=== PATIENT | female | born 1995 | race Caucasian/White ===

== ENCOUNTER → 2016-09-22 | Outpatient (REF) | payer OTHER ==
[~2016-09-22] MED LIST: NUVAMIS2 IU
[2016-09-22 19:53] LABS: MEAN CORPUSCULAR HEMOGLOBIN 30.3 pg (27.0-33.0); MEAN CORPUSCULAR HGB CONC 33.8 g/dl (32.0-36.5); MEAN CORPUSCULAR VOLUME 89.6 fl (80.0-96.0); RED CELL DISTRIBUTION WIDTH 11.9 % (11.5-14.5); WHITE BLOOD COUNT 10.4 K/mm3 (4.0-10.0)
[2016-09-22 20:12] LABS: ALBUMIN 4.4 GM/DL (3.2-5.2); ALBUMIN/GLOBULIN RATIO 1.22 (1.00-1.93); ALKALINE PHOSPHATASE 68 U/L (45-117); ALT/SGPT 23 U/L (12-78); ANION GAP 8 MEQ/L (8-16); AST/SGOT 12 U/L (15-37); BILIRUBIN,TOTAL 0.7 MG/DL (0.2-1.0); BLOOD UREA NITROGEN 13 MG/DL (7-18); CALCIUM LEVEL 9.4 MG/DL (8.5-10.1); CARBON DIOXIDE LEVEL 26 MEQ/L (21-32); CHLORIDE LEVEL 105 MEQ/L (98-107); CREATININE FOR GFR 0.71 MG/DL (0.55-1.02); FREE T4 1.04 NG/DL (0.76-1.46); GLOMERULAR FILTRATION RATE > 60.0 (>60); GLUCOSE, FASTING 80 MG/DL (70-105); POTASSIUM SERUM 3.8 MEQ/L (3.5-5.1); SODIUM LEVEL 139 MEQ/L (136-145)
[2016-09-27 14:11] LABS: Chitobioside Carbohydrat (ACCA 42 units (0-90); Laminaribioside Carbohyd (ALCA 6 units (0-60); Mannobioside Carbohydrat (AMCA 24 units (0-100); Saccharomyces cerevisiae IgG A 1 units (0-50)
== END ==
LOC: M SFHCADAM 12:38
PROVIDERS: ATTEND Family Medicine
DX: K52.9 Noninfective gastroenteritis and colitis, unspecified (principal); E04.9 Nontoxic goiter, unspecified

== ENCOUNTER 2016-11-25 12:49 | Outpatient (CLI) | payer OTHER ==
[~2016-11-25] VITALS: Ht 167.6 cm; Wt 63.5 kg
[2016-11-25] MEDS ORDERED: NS 1,000 ML IV ONE (13:00)
[2016-11-25] MEDS ORDERED: NUVAMIS2 IU (14:25)
[2016-11-25] MEDS ORDERED: LIDOCAINE 2% MDV 20 ML VIAL As Ordered ONE (14:55)
[2016-11-25] MEDS ORDERED: PROPOFOL 200 MG/20 ML VIAL As Ordered ONE (14:55)
--- NOTE | 2016-11-25 15:39 | ROOR ---
Patient Name: Esau Goddard Procedure Date: 11/25/2016 3:08 PM Date of : 1995 Age: 21 Room: [facility] Gender: Female Note Status: Finalized Procedure: Colonoscopy Indications: Chronic diarrhea, Hematochezia Providers: Edgar Salcido MD Referring MD: Huber Jauregui MD Requesting Provider: Medicines: Monitored Anesthesia Care Complications: No immediate complications. Procedure: Pre-Anesthesia Assessment: - Prior to the procedure, a History and Physical was performed, and patient medications and allergies were reviewed. The patient is competent. The risks and benefits of the procedure and the sedation options and risks were discussed with the patient. All questions were answered and informed consent was obtained. Patient identification and proposed procedure were verified by the physician, the nurse and the cotton buyer in the procedure room. Mental Status Examination: alert and oriented. Airway Examination: normal oropharyngeal airway and neck mobility. Respiratory Examination: clear to auscultation. CV Examination: normal. Prophylactic Antibiotics: The patient does not require prophylactic antibiotics. Prior Anticoagulants: The patient has taken no previous anticoagulant or antiplatelet agents. ASA Grade Assessment: I - A normal, healthy patient. After reviewing the risks and benefits, the patient was deemed in satisfactory condition to undergo the procedure. The anesthesia plan was to use monitored anesthesia care (MAC). Immediately prior to administration of medications, the patient was re-assessed for adequacy to receive sedatives. The heart rate, respiratory rate, oxygen saturations, blood pressure, adequacy of pulmonary ventilation, and response to care were monitored throughout the procedure. The physical status of the patient was re-assessed after the procedure. The Colonoscope was introduced through the anus and advanced to the terminal ileum, with identification of the appendiceal orifice and IC valve. The colonoscopy was performed without difficulty. The patient tolerated the procedure well. The quality of the bowel preparation was good. The terminal ileum, ileocecal valve, appendiceal orifice, and rectum were photographed. Scope insertion time was 2 minutes. Scope withdrawal time was 8 minutes. The total duration of the procedure was 11 minutes. Findings: The perianal and digital rectal examinations were normal. The terminal ileum appeared normal. Biopsies were taken with a cold forceps for histology. Verification of patient identification for the specimen was done by the physician and nurse using the patient's name, date and medical record number. Estimated blood loss was minimal. Normal mucosa was found from sigmoid to cecum. A patchy area of mildly erythematous mucosa was found in the rectum. Biopsies for histology were taken with a cold forceps from the ascending colon, transverse colon and rectum for evaluation of microscopic colitis. No additional abnormalities were found on retroflexion. Impression: - The examined portion of the ileum was normal. Biopsied. - Normal mucosa from sigmoid to cecum. - Erythematous mucosa in the rectum. Biopsied. Recommendation: - Patient has a contact number available for emergencies. The signs and symptoms of potential delayed complications were discussed with the patient. Return to normal activities tomorrow. Written discharge instructions were provided to the patient. - Resume previous diet. - Continue present medications. - Await pathology results. - Repeat colonoscopy date to be determined after pending pathology results are reviewed for surveillance. - Return to GI clinic as previously scheduled 12/12/2016 at 10:30 AM. - Return to primary care physician. Edgar Salcido MD Edgar Salcido MD 11/25/2016 3:39:43 PM This report has been signed electronically. Number of Addenda: 0 Note Initiated On: 11/25/2016 3:08 PM Estimated Blood Loss: Estimated blood loss was minimal.
[2016-11-25 16:09] VITALS: BP 111/58
== END 2016-11-25 16:26 | disposition home or self-care (01) ==
LOC: M OPP 12:49
PROVIDERS: ATTEND Internal Medicine Gastroenterology
DX: K92.1 Melena (principal); Z88.1 Allergy status to other antibiotic agents; Z79.3 Long term (current) use of hormonal contraceptives; Z80.0 Family history of malignant neoplasm of digestive organs

== ENCOUNTER → 2017-11-20 | Outpatient (REF) | payer BC, OTHER | LOC: M LAB REF 14:05 | DX: Z12.4 Encounter for screening for malignant neoplasm of cervix (principal) | CPT/HCPCS: 88142; G0123 ==

== ENCOUNTER → 2018-03-01 | Outpatient (REF) | payer BC ==
[2018-03-01 13:15] LABS: HEMATOCRIT 40.4 % (36.0-47.0); HEMOGLOBIN 13.3 g/dl (12.0-15.5); MEAN CORPUSCULAR HEMOGLOBIN 29.7 pg (27.0-33.0); MEAN CORPUSCULAR HGB CONC 32.9 g/dl (32.0-36.5); MEAN CORPUSCULAR VOLUME 90.2 fl (80.0-96.0); PLATELET COUNT, AUTOMATED 116 10^3/uL (150-450); RED BLOOD COUNT 4.48 10^6/uL (4.00-5.40); RED CELL DISTRIBUTION WIDTH 11.5 % (11.5-14.5); WHITE BLOOD COUNT 7.9 10^3/uL (4.0-10.0)
[2018-03-01 13:21] LABS: ALBUMIN 3.9 GM/DL (3.2-5.2); ALBUMIN/GLOBULIN RATIO 1.26 (1.00-1.93); ALKALINE PHOSPHATASE 49 U/L (45-117); ALT/SGPT 17 U/L (12-78); ANION GAP 7 MEQ/L (8-16); AST/SGOT 9 U/L (7-37); BILIRUBIN,TOTAL 0.7 MG/DL (0.2-1.0); BLOOD UREA NITROGEN 13 MG/DL (7-18); CALCIUM LEVEL 8.8 MG/DL (8.5-10.1); CARBON DIOXIDE LEVEL 26 MEQ/L (21-32); CHLORIDE LEVEL 107 MEQ/L (98-107); CREATININE FOR GFR 0.72 MG/DL (0.55-1.30); FREE T4 0.96 NG/DL (0.76-1.46); GLOMERULAR FILTRATION RATE > 60.0 (>60); GLUCOSE, FASTING 77 MG/DL (70-100); POTASSIUM SERUM 4.4 MEQ/L (3.5-5.1); SODIUM LEVEL 140 MEQ/L (136-145); THYROID STIMULATING HORMONE 0.989 uIU/ML (0.358-3.740)
[2018-03-03 00:11] LABS: DEAMIDATED GLIADIN ABS, IgA 2 units (0-19); DEAMIDATED GLIADIN ABS, IgG 3 units (0-19); ENDOMYSIAL ANTIBODY IgA Negative (Negative); IMMUNOGLOBULIN A 189 mg/dL (87-352); t-TRANSGLUTAMINASE(tTG) IgA <2 U/mL (0-3); t-TRANSGLUTAMINASE(tTG) IgG <2 U/mL (0-5)
== END ==
LOC: M SFHCADAM 09:36
DX: K52.9 Noninfective gastroenteritis and colitis, unspecified (principal); R53.83 Other fatigue; R25.1 Tremor, unspecified
CPT/HCPCS: 83735

== ENCOUNTER 2018-03-06 10:49 | Outpatient (REF) | payer BC ==
[2018-03-11 00:41] LABS: H PYLORI STOOL ANTIGEN Negative (Negative)
[2018-03-11 00:41] LABS: O+P EXAM Final report (.)
== END 2018-03-07 ==
LOC: M SFHCADAM 10:49
DX: K52.9 Noninfective gastroenteritis and colitis, unspecified (principal)
CPT/HCPCS: 87177

== ENCOUNTER → 2018-06-12 | Outpatient (CLI) | payer BC ==
[~2018-06-12] MED LIST changes: +GLUCAGON FOR INJ 1 MG VIAL (J1610) As Ordered ONE; +ISOVUE-370 76% 125ML VIAL (Q9967 PER ML) As Ordered ONE; +VoLumen 0.1% SUSPENSION 450ML BOTTLE As Ordered ONE
--- NOTE | 2018-06-13 07:50 | REP ---
Clinical: Inflammatory bowel syndrome. Technique: Axial contrast enhanced images from the lung bases to the pubic symphysis using enterography technique including low dose oral contrast material and 100 ml Isovue 370 intravenous contrast material with images obtained in arterial and portal venous phases of enhancement. Coronal and sagittal re-formations obtained. Findings: Lung bases are clear. Visualized heart and pericardium normal. Liver, spleen, pancreas, gallbladder, bilateral adrenal glands and kidneys are normal. The enteric system is without obvious acute inflammatory process. No bladder wall thickening or areas of stenosis are appreciated. No obvious fistula or mauricio-enterocolonic abnormalities appreciated. No evidence for bowel obstruction. No inflammatory changes or fluid/ascites. No free air. Evaluation of the pelvis demonstrates normal bladder and age-appropriate uterus/adnexa. Mild amount of residual fecal material in the rectosigmoid noted. No ascites. No free air. No intraperitoneal or retroperitoneal adenopathy. Abdominal aorta and vasculature appear normal. Surrounding musculoskeletal structures are intact. Impression: Normal contrast enhanced CT of the abdomen and pelvis. No obvious pathology involving the gastrointestinal system. Electronically Signed by Matt Tavera MD 06/13/2018 07:42 A
[2018-06-20 11:21] LABS: CALPROTECTIN STOOL <16 ug/g (0-120); FATS NEUTRAL Normal (.); FATS TOTAL Normal (.)
== END ==
LOC: M RAD 09:29
PROVIDERS: ATTEND Internal Medicine Gastroenterology
DX: K58.0 Irritable bowel syndrome with diarrhea (principal); R10.9 Unspecified abdominal pain; Z83.79 Family history of other diseases of the digestive system
CPT/HCPCS: 74177; 82705; 83630; 83993; 87507; J1610; Q9967

== ENCOUNTER → 2018-10-02 | Outpatient (REF) | payer BC ==
[~2018-10-02] MED LIST changes: -GLUCAGON FOR INJ 1 MG VIAL (J1610) As Ordered ONE; -ISOVUE-370 76% 125ML VIAL (Q9967 PER ML) As Ordered ONE; -VoLumen 0.1% SUSPENSION 450ML BOTTLE As Ordered ONE
[2018-10-02 15:59] LABS: CHLAMYDIA DNA AMPLIFICATION NEGATIVE (NEGATIVE); GC DNA AMPLIFICATION NEGATIVE (NEGATIVE)
== END ==
LOC: M LAB REF 13:08
PROVIDERS: ATTEND Advanced Practice Midwife
DX: Z11.3 Encounter for screening for infections with a predominantly sexual mode of transmission (principal)

== ENCOUNTER → 2019-06-21 | Outpatient (REF) | payer BC ==
[2019-06-21 13:12] LABS: HEMOGLOBIN 14.2 g/dl (12.0-15.5); MEAN CORPUSCULAR HEMOGLOBIN 29.8 pg (27.0-33.0); MEAN CORPUSCULAR HGB CONC 32.3 g/dl (32.0-36.5); MEAN CORPUSCULAR VOLUME 92.2 fl (80.0-96.0); PLATELET COUNT, AUTOMATED 197 10^3/uL (150-450); RED BLOOD COUNT 4.77 10^6/uL (4.00-5.40); WHITE BLOOD COUNT 12.3 10^3/uL (4.0-10.0)
[2019-06-21 13:34] LABS: ERYTHROCYTE SEDIMENTATION RATE 6 mm/hr (0-20)
[2019-06-21 13:39] LABS: ALBUMIN 4.1 GM/DL (3.2-5.2); ALT/SGPT 21 U/L (12-78); BILIRUBIN,TOTAL 0.5 MG/DL (0.2-1.0); BLOOD UREA NITROGEN 12 MG/DL (7-18); CALCIUM LEVEL 9.7 MG/DL (8.5-10.1); CARBON DIOXIDE LEVEL 29 MEQ/L (21-32); CHLORIDE LEVEL 105 MEQ/L (98-107); CREATININE FOR GFR 0.73 MG/DL (0.55-1.30); GLOMERULAR FILTRATION RATE > 60.0 (>60); GLUCOSE, FASTING 78 MG/DL (70-100); POTASSIUM SERUM 4.1 MEQ/L (3.5-5.1); SODIUM LEVEL 139 MEQ/L (136-145); TOTAL PROTEIN 7.8 GM/DL (6.4-8.2)
== END ==
LOC: M SFHCADAM 09:06
PROVIDERS: ATTEND Family Medicine
DX: K52.9 Noninfective gastroenteritis and colitis, unspecified (principal); K58.0 Irritable bowel syndrome with diarrhea

== ENCOUNTER → 2020-01-29 | Outpatient (CLI) | payer BC ==
[2020-01-29 10:42] LABS: BASO % 0.5 % (0.0-1.0); EOS % 0.2 % (0.0-3.0); HEMATOCRIT 43.6 % (36.0-47.0); LYMPH # 2.2 10^3/uL (1.5-5.0); LYMPH % 24.9 % (24.0-44.0); MEAN CORPUSCULAR HEMOGLOBIN 29.4 pg (27.0-33.0); MEAN CORPUSCULAR HGB CONC 32.1 g/dl (32.0-36.5); MEAN CORPUSCULAR VOLUME 91.4 fl (80.0-96.0); MONO # 0.4 10^3/uL (0.0-0.8); MONO % 5.1 % (0.0-5.0); PLATELET COUNT, AUTOMATED 126 10^3/uL (150-450); RED BLOOD COUNT 4.77 10^6/uL (4.00-5.40); WHITE BLOOD COUNT 8.7 10^3/uL (4.0-10.0)
[2020-01-29 11:12] LABS: H PYLORI QUALITATIVE IgG NEGATIVE (NEGATIVE)
[2020-01-29 11:20] LABS: ALBUMIN 4.2 GM/DL (3.2-5.2); ALT/SGPT 15 U/L (12-78); BILIRUBIN,DIRECT 0.2 MG/DL (0.0-0.2); BILIRUBIN,TOTAL 0.8 MG/DL (0.2-1.0); C REACTIVE PROTEIN QUANTITATIV < 0.30 MG/DL (0.00-0.30); TOTAL PROTEIN 7.6 GM/DL (6.4-8.2)
[2020-01-29 11:31] LABS: ERYTHROCYTE SEDIMENTATION RATE 2 mm/hr (0-20)
[2020-01-30 12:13] LABS: UNITSIGA FOR GLIADIN IGA 3 units (0-19); UNITSIGG FOR GLIADIN IGG 2 units (0-19)
== END ==
LOC: M LAB 09:36
PROVIDERS: ATTEND Internal Medicine Gastroenterology
DX: R19.7 Diarrhea, unspecified (principal)

== ENCOUNTER → 2020-02-14 | Outpatient (CLI) | payer BC ==
--- NOTE | 2020-02-18 12:51 | REP ---
INDICATION: IRRITABLE BOWEL SYNDROME WITH DIARRHEA COMPARISON: None TECHNIQUE: Real time B-mode walter scale ultrasound examination using curved array transducer followed by Doppler evaluation of the superior mesenteric artery and celiac axis for the evaluation of median arcuate ligament and SMA syndrome. FINDINGS: Liver, spleen, and pancreas are normal in contour, size, echogenicity, and overall appearance. No focal hepatic, splenic or pancreatic lesions are identified. Liver measures 16 cm in craniocaudal length. Splenic index equals 400. Two incidental splenules in the left upper quadrant noted. Gallbladder is normal without gallstones, wall thickening, or pericholecystic fluid. No biliary ductal dilatation is appreciated and the common bile duct measures 2.1 mm diameter. The bilateral kidneys are normal in rate form shape without hydronephrosis or obvious abnormality. Right kidney measures 12.0 x 4.9 x 3.6 cm. Left kidney measures 12.0 x 4.9 x 3.6 cm. Abdominal aorta appears normal and measures 1.6 cm maximal diameter. No ascites in the visualized abdomen. Doppler interrogation demonstrates normal velocities, phasicity, and angles to the celiac axis and superior mesenteric artery on both inspiration and expiration without evidence for median arcuate ligament or SMA syndrome. Aorta: 121 cm/sec Proximal superior mesenteric artery: 129 cm/sec with 26.5 degree angulation. Distal superior mesenteric artery: 136 cm/sec Celiac axis (inspiration): 164 cm/sec with 25.3 degrees angulation. Celiac axis (expiration): 161 cm/sec with 32.6 degrees angulation. IMPRESSION: 1. Essentially normal age-appropriate complete abdominal ultrasound. 2. Normal Doppler evaluation of the superior mesenteric artery and celiac axis without evidence for median arcuate ligament or SMA syndrome. <Electronically signed by Matt Tavera > 02/18/20 [id number]
== END ==
LOC: M RAD 07:09
PROVIDERS: ATTEND Internal Medicine Gastroenterology
DX: K58.0 Irritable bowel syndrome with diarrhea (principal)

== ENCOUNTER → 2020-03-13 | Outpatient (CLI) | payer BC ==
[2020-03-13 14:03] LABS: HEMATOCRIT 40.3 % (36.0-47.0); HEMOGLOBIN 13.3 g/dl (12.0-15.5); MEAN CORPUSCULAR HEMOGLOBIN 29.6 pg (27.0-33.0); MEAN CORPUSCULAR VOLUME 89.6 fl (80.0-96.0); PLATELET COUNT, AUTOMATED 122 10^3/uL (150-450); WHITE BLOOD COUNT 9.9 10^3/uL (4.0-10.0)
== END ==
LOC: M LAB 13:28
PROVIDERS: ATTEND Internal Medicine Gastroenterology
DX: K58.0 Irritable bowel syndrome with diarrhea (principal)

== ENCOUNTER → 2020-03-25 | Outpatient (CLI) | payer BC ==
--- NOTE | 2020-03-25 08:23 | REP ---
INDICATION: IRRITABLE BOWEL SYNDROME WITH DIARRHEA COMPARISON: None. TECHNIQUE: Directed grayscale B-mode ultrasound examination using curved array transducer.. FINDINGS: Ultrasound examination of the right and left lower quadrant demonstrate no free fluid and relatively normal bowel by ultrasound evaluation. The appendix is not visualized. No fluid collection or adenopathy to suggest appendicitis or other obvious pathologic process. Bilateral ovaries are normal in appearance. IMPRESSION: No obvious abnormal findings by ultrasound examination. Appendix not visualized but no secondary sonographic evidence to suggest appendicitis appreciated. <Electronically signed by Matt Tavera > 03/25/20 [id number]
== END ==
LOC: M RAD 07:28
PROVIDERS: ATTEND Internal Medicine Gastroenterology
DX: R10.31 Right lower quadrant pain (principal)

== ENCOUNTER → 2020-04-19 | Outpatient (CLI) | payer BC ==
[~2020-04-19] MED LIST changes: +AMOX500C PO
== END ==
LOC: M LABSMTC 11:08
PROVIDERS: ATTEND Anesthesiology
DX: Z01.812 Encounter for preprocedural laboratory examination (principal); Z20.822 Contact with and (suspected) exposure to COVID-19

== ENCOUNTER 2020-04-24 09:26 | Day surgery (SDC) | payer BC ==
[~2020-04-24] VITALS: Ht 167.6 cm; Wt 59.0 kg
[~2020-04-24 09:26] MED LIST changes: +LIDOCAINE 2% 100MG/5ML SDV (FOR ANES.) As Ordered ONE; +NS 1,000 ML IV ONE; +fentaNYL 100 MCG/2 ML INJECTION (J3010) As Ordered ONE; +propofoL 200 MG/20 ML VIAL As Ordered ONE
--- OUTSIDE RECORDS SUMMARY | 2020-04-24 09:31 | CCD ---
Author [facility] Organization [facility] Address [address] [place] [address] Phone Care Team Providers Care Cutch Cleaner Name Role Phone Trevon Ace NP, Isabella Spain PP [phone] Trevon Ace NP, Isabella Spain Unavailable [phone] Reason for Referral No Reason for Referral Recorded Problems Includes: Active, inactive, and resolved Problems All Visits Effective Date(s) Provider Condition Stat us Irritable Bowel Syndrome 02/03/2020 Isabella herrera NP Active Temporomandibular Joint Disorder Bilateral 02/03/2020 Isabella Ace NP Active Generalized Anxiety Disorder 02/03/2020 Isabella arellano NP Active Note: STRONG FAMILY HX. Plan of Treatment Future Appointments Date Time Location Provider H Adult Prophy 02/25/2020 8:10AM [facility] Lanny cervantes RDH Pap 03/30/2020 11:30AM [facility] Isabella Ace NP Future Tests Order Diagnosis Results Due Ordering Provid er [id number] - *Revisit Chronic Depression Follow-up Major depressive disorder, single episode, unspecified 02/03/20 Isabella Ace NP Findings Encounter Date Instructions for patient IF YOU DEV ELOP ANY WORSENING SYMPTOMS OR HAVE ANY PLAN TO HURT YOURSELF, GO TO THE EMERGENCY ROOM IMMEDIATELY OR CALL 911 ADVISED. I WILL SEE YOU BACK AT ANY TIME YOU FEEL THE NEED, LONG YOU DON'T MIND THE WAIT TO BE SEEN. Primary Care Telehealth Zoom with Isabella Ace NP 02/03/2020 Ordered return to the clinic if condition worsens or n ew symptoms arise Primary Care Telehealth Zoom with Isabella Ace NP 02/03/2020 Assessments Includes: Assessments for all patient encounters Findings Encounter Date Bilateral temporomandibular joint disorder Primary Car e Telehealth Zoom with Isabella Spain Trevon Ace NP 02/03/2020 Depression Primary Care Telehealth Zoom with Isabella quigley Trevon Ace NP 02/03/2020 Generalized anxiety disorder Primary Care Telehealth Z oom with Isabella Spain Trevon Ace NP 02/03/2020 Irritable bowel syndrome Primary Care Telehealth Zoom with Isabella Spain Trevon Ace NP 02/03/2020 Instructions Instructions not supported for this document typeNo Instructions Recorded Medical Equipment - Implanted Devices Includes: Current and historical DevicesNo Medical Equipment Recorded Medications Includes: Current and historical Medications Current Medications (continue as prescribed) FLUoxetine HCl 10 MG Oral Tablet 02/03/2020 - 08/01/2020 Pro vider: Isabella Ace NP Diagnosis: 1/2 TAB PO X 1 WEEK, THEN INCREASE TO once a day Omeprazole 40 MG Oral Capsule Delayed Release 01/29/2020 Provider: Diagnosis: NuvaRing 0.12-0.015 MG/24HR Vaginal Ring 12/10/2019 Provider: Diagnosis: Medications Administered Includes: Administered Medications in patient's chartNo Administered Medications Recorded Vital Signs Includes: Vital Signs from 02/02/2019 through 02/03/2020 Vital Name 02/03/2020 03:33P Pain Level 0 Note: UNABLE TO OBTAIN V/S Results Includes: Results from 02/02/2019 through 02/03/2020No Results Recorded For Specified Dates History of Present Illness History of Present Illness not supported for this document typeNo History of Present Illness Recorded Social History Description Last Updated No secondhand cigarette smoke exposure 02/03/2020 Smoking status 02/03/2020 : Former smoker 02/03/2020 Procedures and Surgical/Medical History Includes: Procedures from 02/02/2019 through 02/03/2020 Procedures CPT-4 Diagnosis Performing Provider Service Location Service Date Limited Oral Evaluation D0140 Encounter for de ntal exam and cleaning w/o abnormal findings Abraham Ignacio S [facility] 11/05/2019 Panoramic radiographic image D0330 Encounter f or dental exam and cleaning w/o abnormal findings Abraham Ignacio DDS [facility] 11/05/2019 Family History Includes: Family History in patient's chartNo Family History Recorded Review of Systems Review of Systems not supported for this document typeNo Review of Systems Recorded Mental Status Mental Status not supported for this document type Description Cognitive functioning was normal Oriented to time, place, and person Thought processes were not impaired The thought content revealed no impairme nt No suicidal ideation No suicidal plans No suicidal intent Depression Functional Status Functional Status not supported for this document typeNo Functional Status Recorded Physical Exam Physical Exam not supported for this document typeNo Physical Exam Recorded Immunizations Includes: Immunizations in patient's chartNo Immunizations Recorded Allergies Includes: Active, inactive, and resolved AllergiesNo Known Allergies Encounters Includes: Encounters from 02/02/2019 through 02/03/2020 Encounter Provider Location Date Diagnosis Primary Care Telehealth Zoom Isabella Spain Trevon Ace NP [facility] 02/03/2020 Irritable Bowel Syndrome, Temporomandibu lar Joint Disorder Bilateral, Generalized Anxiety Disorder, Depression [Patient Encounter] Omaira Carpenter [facility] 01/14/2020 [Patient Encounter] Harry Stevens [facility] 11/13/2019 [Patient Encounter] Fátima Montemayor CHILD WELFARE SPECIALIST/VETERINARY TECHNOLOGIST [facility] 10/25 D [facility] Ignacio [facility] 11/05/2019 Insurance Includes: Active Insurance Policies Plan Name Member ID Group # Subscriber Relationship Effective Da laney 1 - [employer] Essential Plan [id number] Esau Goddard Self 03/27/2019 - Unknown 2 - [employer] Essential Plan [id number] Esau Fox rt Self Advance Directives Includes: Current Advance DirectivesNo Advance Directives Recorded Health Concerns Includes: Active Health ConcernsNo Active Health Concerns Recorded Goals Includes: Active GoalsNo Active Goals Recorded Interventions Includes: Interventions for active GoalsNo Interventions Recorded Evaluations & Outcomes Includes: Evaluations & Outcomes for active GoalsNo Outcomes Recorded
--- OUTSIDE RECORDS SUMMARY | 2020-04-24 09:31 | CCD | Continuity of Care Document ---
Author Author Esau PAN M.D. Organization Unknown Address [address], [address] [place] [address] Phone [phone] Care Team Providers Care Inventory Representative Name Role Phone Huber Jauregui M.D. AUTM [phone] Charmaine Michaud AUTM [phone] Problems Description No Active Problems Social History Type Date Description Comments Sex Unknown ETOH Use Denies alcohol use Recreational Drug Use Denies Drug Use Tobacco Use Start: Unknown Non Smoker Exercise Type/Frequency Occasional Mild Exercise Allergies, Adverse Reactions, Alerts Active Allergies Reaction Severity Comments Date Doxycycline SOB 12/10/2015 Inactive Allergies NKDA 10/21/2015 Medications Active Medications SIG Qnty Indications Ordering Provide r Date Nuvaring 0.12-0.015mg/24HR Ring Insert One Ring Vaginally For 3 Weeks Then Remove For 1 Week 1units Z01.419 Jessie Roldan CNM 11/17/2016 Immunizations Description No Information Available Vital Signs Date Vital Result Comment 01/29/2020 8:32am BP Systolic 116 mmHg BP Diastolic 70 mmHg Height 66 inches 5'6" Weight 129.00 lb BMI (Body Mass Index) 20.8 kg/m2 [place] Body Weight 130 lb Weight 58.514 kg 10/02/2018 10:35am BP Systolic 102 mmHg BP Diastolic 74 mmHg Height 66 inches 5'6" Weight 129.00 lb BMI (Body Mass Index) 20.8 kg/m2 [place] Body Weight 130 lb Weight 58.514 kg Results Description No Information Available Procedures Description No Information Available Medical Devices Description No Information Available Encounters Description No Information Available Assessments Date Code Description Provider 01/29/2020 K58.0 Irritable bowel syndrome with di arrmckinley Pan M.D. Plan of Treatment 01/29/2020 - Edgar Pan M.D.* K58.0 Irritable bowel syndrome with diarrhea * * New Medication:* * New Labs:* Erythrocyte Sedimentation Rate, Ordered: 01/29/20 * High Sensitivity C-Reactive Protein, Ordered: 01/29/20 * Liver Profile, Ordered: 01/29/20 * Anti-Gliadin Antibody, Ordered: 01/29/20 * CBC With Differential, Ordered: 01/29/20 * H Pylori QL Igg, Ordered: 01/29/20 * Calprotectin Stool Sendout, Ordered: 01/29/20 * Stool For Polys, Ordered: 01/29/20 * Fat Fecal Qualitative, Ordered: 01/29/20 * Pancreatic Elastase Stool Sendout, Ordered: 01/29/20 * New Xrays:* Ultrasound Abdomen Complete, Ordered: 01/29/20 * Comments:* Impression:-- Chronic diarrhea , with upper abdominal cramping -- started again around 1 year ago - * Recommendations:* -- Educated patient about the test results and all questions answered.. -- Educated patient about the possible differential diagnoses and dietary changes for IBS.. -- Will resume on Psyllium and omeprazole due to upper gi symptoms. -- Will obtain Blood and stool testing for further evaluation.. -- Educated about the routine screening colonoscopy at age 48. -- Return to GI clinic if any new symptoms or change in status. -- follow up with PMD for routine medical care and other age appropriate health maintenance. Functional Status Description No Information Available Mental Status Description No Information Available Referrals Refer to Reason for Referral Status Appt Date Edgar Pan M.D. ABDMINAL PAIN Scheduled 01/[address] [place] [address], [address] [place] [address] [phone]
--- OUTSIDE RECORDS SUMMARY | 2020-04-24 09:31 | CCD | Continuity of Care Document ---
Author Author Esau PAN M.D. 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 AUTM Problems Description No Active Problems Social History Type Date Description Comments Sex Unknown ETOH Use Denies alcohol use Recreational Drug Use Denies Drug Use Tobacco Use Start: Unknown Non Smoker Exercise Type/Frequency Occasional Mild Exercise Allergies, Adverse Reactions, Alerts Active Allergies Reaction Severity Comments Date Doxycycline SOB 12/10/2015 Inactive Allergies NKDA 10/21/2015 Medications Active Medications SIG Qnty Indications Ordering Provide r Date Famotidine 20mg Tablets 1 tab by mouth twice a day ( merchant miller on empty stomach and at bedtime) - take for 6 weeks and then taper off.. 60tabs Edgar Pan M.D. 1 05/12/2019 Dicyclomine HCL 20mg Tablets take 1 tablet by mouth 2 to 3 times daily, take atleast 15 minutes before meals (for diarrhea and abdominal cramps) 90tabs Edgar Pan M.D. 03/11/2020 Psyllium Fiber 0.52gm Capsules 1 capsule by mouth 1 to 2 times a day with meals and depending on symptoms adjust after 2 weeks 60caps K58.0 Edgar Pan M.D. 2019 Nuvaring 0.12-0.015mg/24HR Ring Insert One Ring Vaginally For 3 Weeks Then Remove For 1 Week 1units Z01.419 Jessie Roldan CNM 11/17/2016 Sertraline HCL 25mg Tablets 1tab po qd Unknown History Medications Omeprazole 40mg Capsules DR once daily - take merchant miller on empty stomach - atleast 1/2 hour before breakfast. (taper off after 6 weeks) 30caps K58.0 Edgar Pan M.D. 06/2019 - 03/10/2020 Immunizations Description No Information Available Vital Signs Date Vital Result Comment 03/11/2020 9:49am BP Systolic 126 mmHg BP Diastolic 74 mmHg Height 66 inches 5'6" Weight 135.00 lb BMI (Body Mass Index) 21.8 kg/m2 [place] Body Weight 130 lb Weight 61.236 kg BSA (Body Surface Area) 1.69 m2 01/29/2020 8:32am BP Systolic 116 mmHg BP Diastolic 70 mmHg Height 66 inches 5'6" Weight 129.00 lb BMI (Body Mass Index) 20.8 kg/m2 [place] Body Weight 130 lb Weight 58.514 kg BSA (Body Surface Area) 1.66 m2 Results Test Acquired Date Facility Test Result H/L Range Note Laboratory test finding 02/14/2020 [facility] [address] [place], [place] [id number] [phone] Calprotectin Stool <16 ug/g Normal 0-120 1 Stool Lactoferrin-polys by Ica NEGATIVE Normal 2 Fat Fecal Qualitative 02/14/2020 [facility] [address] [place], [place] [id number] [phone] Fats Neutral Normal Normal . 3 Fats Total Normal Normal . 4 Laboratory test finding 02/14/2020 [facility] [address] [place], [place] [id number] [phone] Pancreatic Elastase Stool >500 Normal >200 5 Laboratory test finding 01/29/2020 [facility] [address] [place], [place] [id number] [phone] Erythrocyte Sedimentation Rate 2 mm/hr Normal 0 -20 C Reactive Protein Quantitativ < 0.30 mg/dL Normal 0.00-0.30 Liver Profile 01/29/2020 [facility] Main Lab [address] [place] [id number] [phone] Ast/Sgot 12 U/L Normal 7-37 Alt/SGPT 15 U/L Normal 12-78 Alkaline Phosphatase 49 U/L Normal 45-117 Bilirubin,Total 0.8 mg/dL Normal 0.2-1.0 Bilirubin,Direct 0.2 mg/dL Normal 0.0-0.2 Total Protein 7.6 GM/DL Normal 6.4-8.2 Albumin 4.2 GM/DL Normal 3.2-5.2 Albumin/Globulin Ratio 1.2 Normal 1.2-2.2 Anti-Gliadin Antibody 01/29/2020 [facility] [address] [place], [place] [id number] [phone] Unitsiga For Gliadin Iga 3 units Normal 0-19 6 Unitsigg For Gliadin Igg 2 units Normal 0-19 7 CBC With Differential 01/29/2020 [facility] [address] [place] [address] [phone] White Blood Count 8.7 10 Normal 4.0-10.0 Red Blood Count 4.77 10 Normal 4.00-5.40 Hemoglobin 14.0 g/dL Normal 12.0-15.5 Hematocrit 43.6 % Normal 36.0-47.0 Mean Corpuscular Volume 91.4 fl Normal 80.0-96.0 Mean Corpuscular Hemoglobin 29.4 pg Normal 27.0-33.0 Mean Corpuscular HGB Conc 32.1 g/dL Normal 32.0-36.5 Red Cell Distribution Width 11.6 % Normal 11.5-14.5 Platelet Count, Automated 126 10 Low 150-450 Neutrophils % 69.0 % High 36.0-66.0 Lymph % 24.9 % Normal 24.0-44.0 Rooks % 5.1 % High 0.0-5.0 Eos % 0.2 % Normal 0.0-3.0 Baso % 0.5 % Normal 0.0-1.0 Immature Granulocyte % 0.3 % Normal 0-3.0 Nucleated Red Blood Cell % 0.0 % Normal 0-0 Neutrophils # 6.0 10 Normal 1.5-8.5 Lymph # 2.2 10 Normal 1.5-5.0 Rooks # 0.4 10 Normal 0.0-0.8 Eos # 0.0 10 Normal 0.0-0.5 Baso # 0.0 10 Normal 0.0-0.2 Laboratory test finding 01/29/2020 [facility] [address] [place], [place] [id number] [phone] H Pylori Qualitative Igg NEGATIVE Normal Negativ e 8 1 Concentration Interpreta tion Follow-Up <16 - 50 ug/g Normal None >50 -120 ug/g Borderline Re-evaluate in 4-6 weeks >120 ug/g Abnormal Repeat as clinically indicated Performed at: [facility] [address] [id number] Car Usher: Noemi Kirby MD, Phone: [phone] Performed at: [facility] [address] [id number] Car Usher: Roseann Montenegro MD, Phone: [phone] 3 Normal (<60 Droplets/HPF) 4 Normal (<100 Droplets/HPF) 5 Result Units: ug Elast./g Severe Pancreatic Insufficiency: <100 Moderate Pancreatic Insufficiency: 100 - 200 Normal: >200 6 Negative 0 - 19 Weak Positive 20 - 30 Moderate to Strong Positive >30 7 Negative 0 - 19 Weak Positive 20 - 30 Moderate to Strong Positive >30 Performed at: [address] [id number] Car Usher: Noemi Kirby MD, Phone: [phone] SERUM SAMPLES OBTAINED TOO E TONE DURING INFECTION MAY NOT CONTAIN DETECTABLE ANTIBODIES. IF H. PYLORI INFECTION IS SUSPECTED WITH A "NEGATIVE" SERUM RESULT, A FOLLOW UP SPECIMEN IS RECOMMENDED IN 2-7 WEEKS. Procedures Description No Information Available Medical Devices Description No Information Available Encounters Type Date Location Provider Dx Diagnosis Office Visit 01/29/2020 8:30a [facility] Ritesh Pan M.D. K58.0 Irritable bowel syndrome wit h diarrhea Assessments Date Code Description Provider 03/11/2020 K58.0 Irritable bowel syndrome with di arrhea Edgar Pan M.D. 03/11/2020 R10.13 Epigastric pain Edgar Alvarado ala, M.D. 03/11/2020 R10.33 Periumbilical pain Edgar jaimes M.D. 03/11/2020 R10.31 Right lower quadrant pain Inés Pan M.D. 01/29/2020 K58.0 Irritable bowel syndrome with di arrhea Edgar Pan M.D. Plan of Treatment 03/11/2020 - Edgar Pan M.D.* K58.0 Irritable bowel syndrome with diarrhea * R10.13 Epigastric pain * R10.33 Periumbilical pain * R10.31 Right lower quadrant pain * * New Labs:* Platelet Count, Automated, Ordered: 03/11/20 * Complete Blood Count, Ordered: 03/11/20 * New Xrays:* Ultrasound Abdomen Limited, Ordered: 03/11/20 * Comments:* Impression:-- Persistent epigastric pain, bloating and irregular bowel movements, with some improvement with Psyllium and not able to tolerate Omeprazole ( due to taste, no allergic reaction), work up negative for celiac, H. pylori, normal LIver panel, blood counts, normal US abdomen with doppler --Needs further evaluation. DDx-- IBS vs PUD vs IBD.-- Low platelet count in labs -- new from baseline-- DDx- Lab error vs rule out other causes.-- Zandra- umbilical and right lower quadrant pain, no fever, no chills but some nausea -- Needs evaluation for sub acute appendicitis.. Other possibility is IBS. Functional Status Description No Information Available Mental Status Description No Information Available Referrals Refer to Reason for Referral Status Appt Date Edgar Pan M.D. ABDMINAL PAIN Scheduled 01/[address] [place] [address], [address] [place] [address] [phone]
--- OUTSIDE RECORDS SUMMARY | 2020-04-24 09:31 | CCD ---
Author Author [facility] Organization [facility] Address Unknown Phone Unavailable Care Team Providers Care Open Pit Quarry Supervisor Name Role Phone ABDELRAHMAN, WILLIAM Unavailable Unavailable ISABELLA DELUCA SPA EXPERIENCE COORDINATOR Unavailable Unavaila ble KENNVANESSA, ISABELLA BREWSTER SPA EXPERIENCE COORDINATOR Unavailable Unavaila ble KENN-RANDAL, ISABELLA BREWSTER SPA EXPERIENCE COORDINATOR Unavailable Unavaila ble YOSI, ISABELLA BREWSTER SPA EXPERIENCE COORDINATOR Unavailable Unavaila ble ISABELLA DELUCA SPA EXPERIENCE COORDINATOR Unavailable Unavaila ble KENN-ISABELLA ACE SPA EXPERIENCE COORDINATOR Unavailable Unavaila ble KENN-ACE, ISABELLA BREWSTER SPA EXPERIENCE COORDINATOR Unavailable Unavaila ble KENN-ACE, ISABELLA BREWSTER SPA EXPERIENCE COORDINATOR Unavailable Unavaila ble KENN-ACE, ISABELLA BREWSTER SPA EXPERIENCE COORDINATOR Unavailable Unavaila ble KENN-ACE, ISABELLA BREWSTER SPA EXPERIENCE COORDINATOR Unavailable Unavaila ble KENN-ACE, ISABELLA BREWSTER SPA EXPERIENCE COORDINATOR Unavailable Unavaila ble KENN-ACE, ISABELLA BREWSTER SPA EXPERIENCE COORDINATOR Unavailable Unavaila ble KENN-ACE, ISABELLA BREWSTER SPA EXPERIENCE COORDINATOR Unavailable Unavaila ble KENN-ACE, ISABELLA BREWSTER SPA EXPERIENCE COORDINATOR Unavailable Unavaila ble KENN-ACE, ISABELLA BREWSTER SPA EXPERIENCE COORDINATOR Unavailable Unavaila ble KENN-ACE, ISABELLA BREWSTER SPA EXPERIENCE COORDINATOR Unavailable Unavaila ble KENN-ACE, ISABELLA BREWSTER SPA EXPERIENCE COORDINATOR Unavailable Unavaila ble KENN-ACE, ISABELLA BREWSTER SPA EXPERIENCE COORDINATOR Unavailable Unavaila ble KENN-ACE, ISABELLA BREWSTER SPA EXPERIENCE COORDINATOR Unavailable Unavaila ble KENN-ACE, ISABELLA BREWSTER SPA EXPERIENCE COORDINATOR Unavailable Unavaila ble KENN-ACE, ISABELLA BREWSTER SPA EXPERIENCE COORDINATOR Unavailable Unavaila ble KENN-ACE, ISABELLA BREWSTER SPA EXPERIENCE COORDINATOR Unavailable Unavaila ble KENN-ACE, ISABELLA BREWSTER SPA EXPERIENCE COORDINATOR Unavailable Unavaila ble KENN-ACE, ISABELLA BREWSTER SPA EXPERIENCE COORDINATOR Unavailable Unavaila ble KENN-ACE, ISABELLA BREWSTER SPA EXPERIENCE COORDINATOR Unavailable Unavaila ble KENN-ACE, ISABELLA BREWSTER SPA EXPERIENCE COORDINATOR Unavailable Unavaila ble KENN-ACE, ISABELLA BREWSTER SPA EXPERIENCE COORDINATOR Unavailable Unavaila ble KENN-ACE, ISABELLA BREWSTER SPA EXPERIENCE COORDINATOR Unavailable Unavaila ble KENN-ACE, ISABELLA BREWSTER SPA EXPERIENCE COORDINATOR Unavailable Unavaila ble KENN-ACE, ISABELLA BREWSTER SPA EXPERIENCE COORDINATOR Unavailable Unavaila ble KENN-ACE, ISABELLA BREWSTER SPA EXPERIENCE COORDINATOR Unavailable Unavaila ble KENN-ACE, ISABELLA BREWSTER SPA EXPERIENCE COORDINATOR Unavailable Unavaila ble KENN-ACE, ISABELLA BREWSTER SPA EXPERIENCE COORDINATOR Unavailable Unavaila ble KENN-ACE, ISABELLA BREWSTER SPA EXPERIENCE COORDINATOR Unavailable Unavaila ble KENN-ACE, ISABELLA BREWSTER SPA EXPERIENCE COORDINATOR Unavailable Unavaila ble KENN-ACE, ISABELLA BREWSTER SPA EXPERIENCE COORDINATOR Unavailable Unavaila ble KENN-ACE, ISABELLA BREWSTER SPA EXPERIENCE COORDINATOR Unavailable Unavaila ble KENN-ACE, ISABELLA BREWSTER SPA EXPERIENCE COORDINATOR Unavailable Unavaila ble KENN-ACE, ISABELLA BREWSTER SPA EXPERIENCE COORDINATOR Unavailable Unavaila ble KENN-ACE, ISABELLA BREWSTER SPA EXPERIENCE COORDINATOR Unavailable Unavaila ble KENN-ACE, ISABELLA BREWSTER SPA EXPERIENCE COORDINATOR Unavailable Unavaila ble KENN-ACE, ISABELLA BREWSTER SPA EXPERIENCE COORDINATOR Unavailable Unavaila ble KENN-ACE, REJI SPA EXPERIENCE COORDINATOR Unavailable Unavaila ble KENN-ACE, ISABELLA BREWSTER SPA EXPERIENCE COORDINATOR Unavailable Unavaila ble KENN-ACE, ISABELLA BREWSTER SPA EXPERIENCE COORDINATOR Unavailable Unavaila ble KENN-ACE, ISABELLA BREWSTER SPA EXPERIENCE COORDINATOR Unavailable Unavaila ble Hilda RDH, A Dorese Unavailable RING, K HELGA PA Unavailable Unavailable RING, K HELGA PA Unavailable Unavailable RING, K HELGA PA Unavailable Unavailable RING, K HELGA PA Unavailable Unavailable RING, K HELGA PA Unavailable Unavailable RING, K HELGA PA Unavailable Unavailable RING, K HELGA PA Unavailable Unavailable RING, K HELGA PA Unavailable Unavailable RING, K HELGA PA Unavailable Unavailable RING, K HELGA PA Unavailable Unavailable RING, K HELGA PA Unavailable Unavailable RING, K HELGA PA Unavailable Unavailable RING, K HELGA PA Unavailable Unavailable RING, K HELGA PA Unavailable Unavailable RING, K HELGA PA Unavailable Unavailable RING, K HELGA PA Unavailable Unavailable RING, K HELGA PA Unavailable Unavailable RING, K HELGA PA Unavailable Unavailable RING, K HELGA PA Unavailable Unavailable RING, K HELGA PA Unavailable Unavailable Mateus, Kwi Yeon DDS Unavailable Unavailable Mateus, Kwi Yeon DDS Unavailable Unavailable Mateus, Kwi Yeon DDS Unavailable Unavailable Harriett PAN MD Unavailable Unavailable Harriett PAN MD Unavailable Unavailable Harriett PAN MD Unavailable Unavailable Harriett PAN MD Unavailable Unavailable Harriett PAN MD Unavailable Unavailable Harriett PAN MD Unavailable Unavailable Harriett PAN MD Unavailable Unavailable Harriett PAN MD Unavailable Unavailable Harriett PAN MD Unavailable Unavailable Harriett PAN MD Unavailable Unavailable Harriett PAN MD Unavailable Unavailable Harriett PAN MD Unavailable Unavailable Harriett PAN MD Unavailable Unavailable Harriett PAN MD Unavailable Unavailable Harriett PAN MD Unavailable Unavailable Harriett PAN MD Unavailable Unavailable MAXIM K FATEMEH WOODARD Unavailable Unavailable TAMIRALNikole K FATEMHE WOODARD Unavailable Unavailable TAMIRALNikole K FATEMEH WOODARD Unavailable Unavailable TAMIRALNikole K FATEMEH WOODARD Unavailable Unavailable TAMIRALNikole K FATEMEH WOODARD Unavailable Unavailable TAMIRALNikole K FATEMEH WOODARD Unavailable Unavailable MAXIM K FATEMEH WOODARD Unavailable Unavailable TAMIRALNikole K FATEMEH WOODARD Unavailable Unavailable TAMIRALA K FATEMEH WOODARD Unavailable Unavailable TAMIRALNikole K FATEMEH WOODARD Unavailable Unavailable TAMIRALA K FATEMEH WODOARD Unavailable Unavailable TAMIRALA K FATEMEH WOODARD Unavailable Unavailable TAMIRALA K FATEMEH WOODARD Unavailable Unavailable TAMIRALA K FATEMEH WOODARD Unavailable Unavailable TAMIRALA K FATEMEH WOODARD Unavailable Unavailable MAXIM K FATEMEH WOODARD Unavailable Unavailable TAMIRALA K FATEMEH WOODARD Unavailable Unavailable [place], J Ruby PA Unavailable Unavailable [place], J Ruby PA Unavailable Unavailable [place], J Ruby PA Unavailable Unavailable [place], J Ruby PA Unavailable Unavailable [place], J Ruby PA Unavailable Unavailable [place], J Ruby PA Unavailable Unavailable [place], J Ruby PA Unavailable Unavailable [place], J Ruby PA Unavailable Unavailable [place], J Ruby PA Unavailable Unavailable [place], J Ruby PA Unavailable Unavailable [place], J Ruby PA Unavailable Unavailable [place], J Ruby PA Unavailable Unavailable [place], J Ruby PA Unavailable Unavailable [place], J Ruby PA Unavailable Unavailable [place], J Ruby PA Unavailable Unavailable [place], J Ruby PA Unavailable Unavailable [place], J Ruby PA Unavailable Unavailable [place], J Ruby PA Unavailable Unavailable [place], J Ruby PA Unavailable Unavailable [place], J Ruby PA Unavailable Unavailable [place], J Ruby PA Unavailable Unavailable [place], J Ruby PA Unavailable Unavailable Jayden [facility], [place] Unavailable ISABELLA DELUCA SPA EXPERIENCE COORDINATOR Unavailable Unavaila ble ISABELLA DELUCA SPA EXPERIENCE COORDINATOR Unavailable Unavaila ble ISABELLA DELUCA SPA EXPERIENCE COORDINATOR Unavailable Unavaila ble ISABELLA DELUCA SPA EXPERIENCE COORDINATOR Unavailable Unavaila ble ISABELLA DELUCA SPA EXPERIENCE COORDINATOR Unavailable Unavaila ble ISABELLA DELUCA SPA EXPERIENCE COORDINATOR Unavailable Unavaila ble ISABELLA DELUCA ELLEN SPA EXPERIENCE COORDINATOR Unavailable Unavaila ble KENN-ACE, ISABELLA BREWSTER SPA EXPERIENCE COORDINATOR Unavailable Unavaila ble KENN-ACE, ISABELLA BREWSTER SPA EXPERIENCE COORDINATOR Unavailable Unavaila ble KENN-ACE, ISABELLA BREWSTER SPA EXPERIENCE COORDINATOR Unavailable Unavaila ble KENN-ACE, ISABELLA BREWSTER SPA EXPERIENCE COORDINATOR Unavailable Unavaila ble KENN-ACE, ISABELLA BREWSTER SPA EXPERIENCE COORDINATOR Unavailable Unavaila ble KENN-ACE, ISABELLA BREWSTER SPA EXPERIENCE COORDINATOR Unavailable Unavaila ble KENN-ACE, ISABELLA BREWSTER SPA EXPERIENCE COORDINATOR Unavailable Unavaila ble KENN-ACE, ISABELLA BREWSTER SPA EXPERIENCE COORDINATOR Unavailable Unavaila ble KENN-ACE, ISABELLA BREWSTER SPA EXPERIENCE COORDINATOR Unavailable Unavaila ble KENN-ACE, ISABELLA BREWSTER SPA EXPERIENCE COORDINATOR Unavailable Unavaila ble KENN-ACE, ISABELLA BREWSTER SPA EXPERIENCE COORDINATOR Unavailable Unavaila ble KENN-ACE, ISABELLA BREWSTER SPA EXPERIENCE COORDINATOR Unavailable Unavaila ble KENN-ACE, ISABELLA BREWSTER SPA EXPERIENCE COORDINATOR Unavailable Unavaila ble KENN-ACE, ISABELLA BREWSTER SPA EXPERIENCE COORDINATOR Unavailable Unavaila ble KENN-ACE, ISABELLA BREWSTER SPA EXPERIENCE COORDINATOR Unavailable Unavaila ble KENN-ACE, ISABELLA BREWSTER SPA EXPERIENCE COORDINATOR Unavailable Unavaila ble KENN-ACE, ISABELLA BREWSTER SPA EXPERIENCE COORDINATOR Unavailable Unavaila ble KENN-ACE, ISABELLA BREWSTER SPA EXPERIENCE COORDINATOR Unavailable Unavaila ble KENN-ACE, ISABELLA BREWSTER SPA EXPERIENCE COORDINATOR Unavailable Unavaila ble KENN-ACE, ISABELLA BREWSTER SPA EXPERIENCE COORDINATOR Unavailable Unavaila ble KENN-ACE, ISABELLA BREWSTER SPA EXPERIENCE COORDINATOR Unavailable Unavaila ble KENN-ACE, ISABELLA BREWSTER SPA EXPERIENCE COORDINATOR Unavailable Unavaila ble KENN-ACE, ISABELLA BREWSTER SPA EXPERIENCE COORDINATOR Unavailable Unavaila ble KENN-ACE, ISABELLA BREWSTER SPA EXPERIENCE COORDINATOR Unavailable Unavaila ble KENN-ACE, ISABELLA BREWSTER SPA EXPERIENCE COORDINATOR Unavailable Unavaila ble KENN-ACE, ISABELLA BREWSTER SPA EXPERIENCE COORDINATOR Unavailable Unavaila ble KENN-ACE, ISABELLA BREWSTER SPA EXPERIENCE COORDINATOR Unavailable Unavaila ble KENN-ACE, ISABELLA BREWSTER SPA EXPERIENCE COORDINATOR Unavailable Unavaila ble KENN-ACE, ISABELLA BREWSTER SPA EXPERIENCE COORDINATOR Unavailable Unavaila ble KENN-ACE, ISABELLA BREWSTER SPA EXPERIENCE COORDINATOR Unavailable Unavaila ble KENN-ACE, ISABELLA BREWSTER SPA EXPERIENCE COORDINATOR Unavailable Unavaila ble KENN-ACE, ISABELLA BREWSTER SPA EXPERIENCE COORDINATOR Unavailable Unavaila ble KENN-ACE, ISABELLA BREWSTER SPA EXPERIENCE COORDINATOR Unavailable Unavaila ble KENN-ACE, ISABELLA BREWSTER SPA EXPERIENCE COORDINATOR Unavailable Unavaila ble KENN-ACE, ISABELLA BREWSTER SPA EXPERIENCE COORDINATOR Unavailable Unavaila ble KENN-ACE, ISABELLA BREWSTER SPA EXPERIENCE COORDINATOR Unavailable Unavaila ble KENN-ACE, ISABELLA BREWSTER SPA EXPERIENCE COORDINATOR Unavailable Unavaila ble KENN-ACE, ISABELLA BREWSTER SPA EXPERIENCE COORDINATOR Unavailable Unavaila ble KENN-ACE, ISABELLA BREWSTER SPA EXPERIENCE COORDINATOR Unavailable Unavaila ble Garza, Tami Shaista PA Unavailable Unavailable Garza, Tami Shaista PA Unavailable Unavailable Garaz, Tami Shaista PA Unavailable Unavailable Garza, Tami Shaista PA Unavailable Unavailable Garza, Tami Shaista PA Unavailable Unavailable Garza, Tami Shaista PA Unavailable Unavailable Garza, Tami Shaista PA Unavailable Unavailable Garza, Tami Shaista PA Unavailable Unavailable Garza, Tami Shaista PA Unavailable Unavailable Garza, Tami Shaista PA Unavailable Unavailable [place]-Escobar, Adriana CNM Unavailable Unavailab le [place]-Escobar, Adriana CNM Unavailable Unavailab le Stepan-Escobar, Adriana CNM Unavailable Unavailab le [place]pan-Escobar, Adriana CNM Unavailable Unavailab le Stepan-Escobar, Adriana CNM Unavailable Unavailab le [place]-Escobar, Adriana CNM Unavailable Unavailab mariya Montemayor AIRLINE MANAGERIAL SUPERVISOR/DOO, Fátima Unavailable Re-disclosure Warning The records that you are about to access may contain information from federally-assisted alcohol or drug abuse programs. If such information is present, then the following federally mandated warning applies: This information has been disclosed to you from records protected by federal confidentiality rules (42 CFR part 2). The federal rules prohibit you from making any further disclosure of this information unless further disclosure is expressly permitted by the written consent of the person to whom it pertains or as otherwise permitted by 42 CFR part 2. A general authorization for the release of medical or other information is NOT sufficient for this purpose. The Federal rules restrict any use of the information to criminally investigate or prosecute any alcohol or drug abuse patient.The records that you are about to access may contain highly sensitive health information, the redisclosure of which is protected by Article 27-F of the [facility] Public Health law. If you continue you may have access to information: Regarding HIV / AIDS; Provided by facilities licensed or operated by the [facility] Office of Mental Health; or Provided by the [facility] Office for People With Developmental Disabilities. If such information is present, then the following [facility] mandated warning applies: This information has been disclosed to you from confidential records which are protected by state law. State law prohibits you from making any further disclosure of this information without the specific written consent of the person to whom it pertains, or as otherwise permitted by law. Any unauthorized further disclosure in violation of state law may result in a fine or fdc sentence or both. A general authorization for the release of medical or other information is NOT sufficient authorization for further disc losure. Allergies and Adverse Reactions Type Description Substance Reaction Status Data Source(s ) Allergy to substance No Known Allergies No known allergies (situation ) PRABHA ([facility]) Drug allergy Doxycycline Doxycycline difficulty breathing Active eCW1 ([facility]) Family History Family Member Name Family Member Gender Family Member Status Date o f Status Description Data Source(s) Unknown Male Diagnosis 08/23/2013 12:00:00 AM EDT NextGen ([facility]) Encounters Encounter Providers Location Date Indications Data Source(s ) Outpatient Attender: ISABELLA DELUCA NP 0 03/30/2020 01:37:00 PM EST Lab [facility] Lab Outpatient<td ID="encounterTypeDescripti onID0">Primary Care [facility]</td><td>Isabella Ace NP</td><td>[facility]</td><td>02/03/2020</td><td><content ID="encounterDiagnosisID0- 0">Irritable Bowel Syndrome</content>, <content ID="encounterDiagnosisID0- 1">Temporomandibular Joint Disorder Bilateral</content>, <content ID="encounterDiagnosisID0-2">Generalized Anxiety Disorder</content>, <content ID="encounterDiagnosisID0-3">Depression</content></td> Attender: ISABELLA DELUCA NP [facility] 02/03/2020 10:57:00 AM EST - 02/03/2020 02:38:38 PM EST DepressionGeneralized Anxiety DisorderTe mporomandibular Joint Disorder BilateralIrritable Bowel Syndrome [facility] Depression Generalized Anxiety Disorder Temporomandibular Joint Disorder Bilater al Irritable Bowel Syndrome Outpatient Attender: FATEMEH Webster/Collin/Garret palacios/Reinjuanita 01/29/2020 07:30:00 AM EST MEDENT ([facility]) [place] [address] [facility] [address] 01/17/2020 12:00:00 AM EDT eCW1 ([facility]) Unknown<td ID="encounterTypeDescriptionI D1">[Patient Encounter]</td><td>Omaira Carpenter [facility]</td><td>[facility]</td><td>01/14/2020</td><td></td> Attender: Omaira Carpenter [facility] 01/14/2020 02:08:00 PM EDT - 01/14/2020 11:59:00 PM EDT PRABHA ([facility]) Unknown<td ID="encounterTypeDescriptionI D2">[Patient Encounter]</td><td>Harry Stevens [facility]</td><td>[facility]</td><td>11/13/2019</td><td></td> Attender: Harry Stevens [facility] 11/13/2019 09:59:00 AM EDT - 11/13/2019 11:59:00 PM EDT PRABHA [facility] Unknown<td ID="encounterTypeDescriptionI D3">[Patient Encounter]</td><td>Fátima DONOHUEP/TWIST PACKER</td><td>[facility]</td><td>11/12/2019</td><td></td> Attender: Fátima VAZQUEZ/DOO [facility] 11/12/2019 08:59:0 0 AM EDT - 11/12/2019 11:59:00 PM EDT [facility]HA [facility] Unknown<td ID="encounterTypeDescriptionI D4">D Emergency-New</td><td>Abraham Ignacio DDS</td><td>[facility]</td><td>11/05/2019</td><td></td> Attender: Cindymargarita Rameshrene Ignacio DDS [facility] 11/05/2019 08:20:00 AM EDT - 11/05/2019 08:56:00 AM EDT PRABHA [facility] Outpatient Attender: [facility] 09/03/2019 07:58:34 PM EDT [facility] OutpatientOFFICE VISIT, EST Attender: Adriana Marroquin 09/03/2019 09:45:00 AM EDT - 09/03/2019 09:45:00 AM ED T Pelvic and perineal painHigh risk heterosexual behaviorEncounter for oth general cnsl and advice on contraception [facility] ([facility] Pelvic and perineal pain High risk heterosexual behavior Encounter for oth general cnsl and advic e on contraception [place] [address] [facility] [address] 08/30/2019 12:00:00 AM EDT eCW1 ([facility]) [facility] Peña [address] [facility] [address] 06/21/2019 12:00:00 AM EDT eCW1 ([facility]) [facility] Marlo [address] [facility] [address] 06/19/2019 12:00:00 AM EDT eCW1 ([facility]) OutpatientOFFICE VISIT, NEW Attender: Ruby isaac 06/11/2019 09:30:00 AM EDT - 06/11/2019 09:30:00 AM EDT Pelvic and perineal painEncounter for oth general cnsl and advice on contraceptionOther sex counselingHigh risk heterosexual behaviorEncntr screen for infections w sexl mode of transmiss NextGen ([facility]) Pelvic and perineal pain Encounter for oth general cnsl and advic e on contraception Other sex counseling High risk heterosexual behavior Encntr screen for infections w sexl mode of transmiss Outpatient Attender: Shaista Simon Prim malinda 06/04/2019 11:30:00 AM EDT MEDENT ([facility] [address] [address] 05/28/2019 12:00:00 AM EST eCW1 ([facility]) [facility] [address] [place] [place] [address] [place] [address] 05/24/2019 12:00:00 AM EST eCW1 ([facility]) [facility] [address] [place] [address] 04/01/2019 12:00:00 AM EST eCW1 ([facility]) Outpatient Attender: HELGA Simon Primary 03/17/2019 08:45:00 AM EST MEDENT ([facility]) Outpatient Attender: HELGA Simon Primary 03/16/2019 07:30:00 AM EST MEDENT ([facility]) [address] [address] 03/07/2019 12:00:00 AM EST eCW1 ([facility]) [facility] [address] [place] [address] 02/27/2019 12:00:00 AM EST eCW1 ([facility]) Medications Medication Brand Name Start Date Product Form Dose Route Admi nistrative Instructions Pharmacy Instructions Status Indications Reaction Description Data Source(s) 500 mg 04/09/2020 12:00:00 AM EST capsule 20 TAKE ONE CAPSULE BY MOUTH TWICE A DAY TAKE ONE CAPSULE BY MOUTH TWICE A DAY SOLD: 04/09/2020 [facility] 0.75 % 04/09/2020 12:00:00 AM EST gel 70 INSERT 1 APPLICATORFUL VAGINALLY EVERY NIGHT AT BEDTIME FOR 5 DAYS INSERT 1 APPLICATORFUL VAGINALLY EVERY N IGHT AT BEDTIME FOR 5 DAYS SOLD: 04/09/2020 [facility] Metronidazole 500 MG Oral Tablet METRONIDAZOLE 04/01/2020 12:0 0:00 AM EST tablet 14 TAKE ONE TABLET BY M OUTH TWICE A DAY WITH FOOD, DO NOT DRINK ALCOHOL WHILE ON THIS MEDICATION TAKE ONE TABLET BY MOUTH TWICE A DAY WIT H FOOD, DO NOT DRINK ALCOHOL WHILE ON THIS MEDICATION SOLD: 04/03/2020 [facility] 20 mg 03/31/2020 12:00:00 AM EST capsule 30 TAKE ONE CAPSULE BY MOUTH ONCE DAILY TAKE ONE CAPSULE BY MOUTH ONCE DAILY SOLD: 04/03/2020 [facility] 10 mg-3.5 gram -12 gram/160 mL 03/25/2020 12:00:00 AM EST so lution 320 FOLLOW PRE PROCEDURE INSTRUCTIONS FOLLOW PRE PROCEDURE INSTRUCTIONS SOLD: 04/03/2020 [facility] 20 mg 03/11/2020 12:00:00 AM EST tablet 90 TAKE ONE TABLET BY MOUTH 2-3 TIMES DAILY AT LEAST 15 MINUTES BEFORE MEALS (FOR DIARRHEA AND ABDOMINAL CRAMPS) TAKE ONE TABLET BY MOUTH 2-3 TIMES DAILY AT LEAST 15 MINUTES BEFORE MEALS (FOR DIARRHEA AND ABDOMINAL CRAMPS) SOLD: 04/03/2020 [facility] Famotidine 20 MG Oral Tablet Famotidine 03/11/2020 12:00:00 AM EST ORAL active MEDENT ([facility], ) Dicyclomine Hydrochloride 20 MG Oral Tablet Dicyclomine HCL 03/11/2020 12:00:00 AM EST ORAL active MEDENT ([facility], ) 10 mg 02/04/2020 12:00:00 AM EST tablet 30 TAKE ONE-HALF TABLET BY MOUTH EVERY DAY FOR 7 DAYS THEN 1 TABLET ONCE DAILY TAKE ONE-HALF TABLET BY MOUTH EVERY DAY FOR 7 DAYS THEN 1 TABLET ONCE DAILY SOLD: 02/04/2020 [facility] 10 mg 02/04/2020 12:00:00 AM EST tablet 30 TAKE ONE-HALF TABLET BY MOUTH EVERY DAY FOR 7 DAYS THEN 1 TABLET ONCE DAILY TAKE ONE-HALF TABLET BY MOUTH EVERY DAY FOR 7 DAYS THEN 1 TABLET ONCE DAILY SOLD: 03/04/2020 [facility] Fluoxetine 10 MG Oral Tablet FLUoxetine HCl 10 MG Oral Tablet FLUoxetine HCl 10 MG Oral Tablet 02/03/2020 12:00:00 AM EST 1 act claude fluoxetine 10 MG Oral Tablet PRABHA ([facility]) 40 mg 01/29/2020 12:00:00 AM EST capsule,delayed release (DR/EC) 30 TAKE ONE CAPSULE BY MOUTH CAPTAIN WAITER ON AN EMPTY STOMACH AT LEAST ONE HALF HOUR BEFORE BREAKFAST ( TAPER OFF AFTER 6 WEEKS ) TAKE ONE CAPSULE BY MOUTH CAPTAIN WAITER ON AN EMPTY STOMACH AT LEAST ONE HALF HOUR BEFORE BREAKFAST ( TAPER OFF AFTER 6 WEEKS ) SOLD: 01/29/2020 [facility] Psyllium 520 MG Oral Capsule Psyllium Fiber 01/29/2020 12:00:00 AM EST ORAL active MEDENT ([facility], ) Omeprazole 40 MG Delayed Release Oral Capsule Omeprazole 01/29/2020 12:00:00 AM EST completed MEDENT ([facility], ) Omeprazole 40 MG Delayed Release Oral Ca psule Omeprazole 40 MG Oral Capsule Delayed Release Omeprazole 40 MG Oral Capsule Delayed Release 01/29/20 20 12:00:00 AM EST active omeprazole 40 MG Delayed Release Oral Capsule PRABHA ([facility]) 0.12-0.015 mg/24 hr 12/10/2019 12:00:00 AM EDT ring 1 INSERT ONE RING VAGINALLY FOR 3 WEEKS THEN REMOVE FOR 1 WEEK DIRECTED INSERT ONE RING VAGINALLY FOR 3 WEEKS THEN REMOVE FOR 1 WEEK DIRECTED SOLD: 12/22/2019 [facility] 21 DAY Ethinyl Estradiol 0.144762 MG/HR / Etonogestrel 0.005 MG/HR Vaginal Ring [NuvaRing] NuvaRing 0.12-0.015 MG/24HR Vaginal Ring NuvaRing 0.12-0.015 MG/24HR Vaginal Ring 12/10/2019 12:00:00 AM EDT activ e 21 DAY ethinyl estradiol 0.677848 MG/HR / etonogestrel 0.005 MG/HR Vaginal System [NuvaRing] PRABHA ([facility]) 0.12-0.015 mg/24 hr 12/10/2019 12:00:00 AM EDT ring 1 INSERT ONE RING VAGINALLY FOR 3 WEEKS THEN REMOVE FOR 1 WEEK DIRECTED INSERT ONE RING VAGINALLY FOR 3 WEEKS THEN REMOVE FOR 1 WEEK DIRECTED SOLD: 04/03/2020 [facility] 0.12-0.015 mg/24 hr 12/10/2019 12:00:00 AM EDT ring 1 INSERT ONE RING VAGINALLY FOR 3 WEEKS THEN REMOVE FOR 1 WEEK DIRECTED INSERT ONE RING VAGINALLY FOR 3 WEEKS THEN REMOVE FOR 1 WEEK DIRECTED SOLD: 03/04/2020 [facility] 4 mg 12/02/2019 12:00:00 AM EDT tablet 15 TAKE ONE TABLET BY MOUTH THREE TIMES A DAY FOR 5 DAYS TAKE ONE TABLET BY MOUTH THREE TIMES A DAY FOR 5 DAYS SOLD: 12/03/2019 [facility] 10 mg 12/02/2019 12:00:00 AM EDT capsule 16 TAKE ONE CAPSULE BY MOUTH FOUR TIMES A DAY FOR 4 DAYS TAKE ONE CAPSULE BY MOUTH FOUR TIMES A DAY FOR 4 DAYS SOLD: 12/03/2019 [facility] 10 mg 11/16/2019 12:00:00 AM EDT tablet 30 TAKE ONE TABLET BY MOUTH EVERY DAY TAKE ONE TABLET BY MOUTH EVERY DAY SOLD: 11/18/2019 [facility] 10 mg 11/16/2019 12:00:00 AM EDT tablet 30 TAKE ONE TABLET BY MOUTH EVERY DAY TAKE ONE TABLET BY MOUTH EVERY DAY SOLD: 12/22/2019 [facility] Misoprostol 0.2 MG Oral Tablet Misoprostol 200 MCG Misoprost ol 200 MCG 04/01/2019 12:00:00 AM EST suspended Misoprostol 200 MCG eCW1 ([facility]) Misoprostol 0.2 MG Oral Tablet Misoprostol 200 MCG Misoprost ol 200 MCG 04/01/2019 12:00:00 AM EST suspended Misoprostol 200 MCG eCW1 ([facility]) Misoprostol 0.2 MG Oral Tablet Misoprostol 200 MCG Misoprost ol 200 MCG 04/01/2019 12:00:00 AM EST suspended 2 tabs eCW1 ([facility]) Misoprostol 0.2 MG Oral Tablet Misoprostol 200 MCG Misoprost ol 200 MCG 04/01/2019 12:00:00 AM EST active 2 tabs eCW1 ([facility]) 1 % 03/16/2019 12:00:00 AM EST cream 400 APPLY THICK LAYER TO AFFECTED AREA ON SKIN ON RIGHT FOREARM AND RIGHT TORSO EVERY 12 HOURS WITH DRESSING CHANGES APPLY THICK LAYER TO AFFECTED AREA ON SKIN ON RIGHT FOREARM AND RIGHT TORSO EVERY 12 HOURS WITH DRESSING CHANGES SOLD: 03/16/2019 [facility] silver sulfadiazine 10 MG/ML Topical Cream [Silvadene] Eliza vega 03/16/2019 12:00:00 AM EST completed MEDENT ([facility]) 0.12-0.015 mg/24 hr 03/12/2019 12:00:00 AM EST ring 1 IBSERT 1 RING VAGINALLY FOR 3 WEEKS , THEN 1 WEEK RING FREE DIRECTED IBSERT 1 RING VAGINALLY FOR 3 WEEKS , THEN 1 WEEK RING FREE DIRECTED SOLD: 03/12/2019 [facility] 0.12-0.015 mg/24 hr 03/12/2019 12:00:00 AM EST ring 1 IBSERT 1 RING VAGINALLY FOR 3 WEEKS , THEN 1 WEEK RING FREE DIRECTED IBSERT 1 RING VAGINALLY FOR 3 WEEKS , THEN 1 WEEK RING FREE DIRECTED SOLD: 04/11/2019 [facility] 0.12-0.015 mg/24 hr 03/12/2019 12:00:00 AM EST ring 1 IBSERT 1 RING VAGINALLY FOR 3 WEEKS , THEN 1 WEEK RING FREE DIRECTED IBSERT 1 RING VAGINALLY FOR 3 WEEKS , THEN 1 WEEK RING FREE DIRECTED SOLD: 05/28/2019 [facility] Insurance Providers Payer name Policy type / Coverage type Policy ID Covered republican ID Covered republican's relationship to bear Policy Bear Plan Information BCBS CLAUS HMO [id number] SP [id number] BCBS [place] HMO [id number] SP [id number] SELF PAY BLUE CROSS [id number] SP [id number] [place]/307 [id number] SP [id number] BCBS [facility] Other 0 Self 0 [place] 302/307 [id number] SP [id number] Self Pay P UNAVAILABLE S UNAVAILA BLE BCBS [place] PPO 302/307 [id number] SP [id number] EXCELLUS BC-BS PPO 306 [id number] SP [id number] ANSI-Medicaid [id number] ANSI-Commercial [id number] Excell[employer] BCBS Health Maintenance Organization (HMO) [id number] Self [id number] [employer] BC-BS PPO 306 [id number] SP [id number] EXCELLUS BC-BS PPO 306 [id number] SP [id number] [employer] BC-BS PPO 306 [id number] SP [id number] [facility] PPO POS [id number] ANSI-Commercial [id number] ANSI-Medicaid [id number] ANSI-Medicaid [id number] ANSI-Commercial [id number] ANSI-Medicaid [id number] ANSI-Commercial [id number] Child Health Plus Health Maintenance Organization (HMO) [id number] Self [id number] BCBS/[employer] Commercial [id number] Self [id number] Excell[employer] BCBS Health Maintenance Organization (HMO) [id number] Self [id number] [place] P[place] 302/307 [id number] SP [id number] [facility] COMMUNITY PLAN [facility] [id number] SP [id number] ANSI-Medicaid [id number] Excell[employer] BCBS Health Maintenance Organization (HMO) [id number] Self [id number] BS Child Health Plus Health Maintenance Organization (HMO) [id number] 32 Self [id number] BCBS/[employer] Commercial [id number] Self [id number] [id number] BS Child Health Plus Health Maintenance Organization (HMO) [id number] 32 Self [id number] [facility] Organization (HMO) [id number] Self [id number] [place] Medigap Part B [id number] Self [id number] [facility]/MCR Health Maintenance Organization (HMO) [id number] Self [id number] [place] [id number] Self [id number] [facility]/MCR Health Maintenance Organization (HMO) [id number] Self [id number] BS Child Health Plus Health Maintenance Organization (HMO) [id number] 32 Self [id number] [facility] Health Maintenance Organization (HMO) [id number] Self [id number] [place] Medig[place] Part B [id number] Self [id number] [facility] Health Maintenance Organization (HMO) [id number] Self [id number] UN COMMUNITY PLAN [facility] [id number] SP [id number] BS Child Health Plus Health Maintenance Organization (HMO) Self [facility] Health Maintenance Organization (HMO) Self SELF PAY ONLY UNAVAILABLE SP UNAV AILABLE [employer] COMMUNITY PLAN MCDO [id number] SP [id number] [facility] Health Maintenance Organization (HMO) Self [facility] Community Plan Commercial Self [facility](MCA[facility]) O [id number] S [id number] [employer] O [id number] S [id number] P UNAVAILABLE UNAVAILA BLE [facility] P [id number] C [id number] NATIONAL GENERAL INS. P [id number] C [id number] United [employer] Commercial Self PMA MANAGEMENT PARAMJIT [id number] SP [id number] HARISH [id number] SP [id number] NATIONAL GENERAL INS [id number] BCBS [place] PPO 302/307 [id number] FA2 [id number] [facility] BLUE [id number] SP [id number] BCBS [place] PPO 302/307 [id number] FA2 [id number] Self Pay P none S none SELF PAY UNAVAILABLE UNAVAILA BLE [facility] PHY [id number] SP [id number] Problems, Conditions, and Diagnoses Code Display Name Description Problem Type Effective Dates Data Source(s) 300.02 Generalized Anxiety Disorder Generalized Anxiety Disor [place] Problem 02/03/2020 12:00:00 AM EST PRABHA ([facility]) 13484679 Temporomandibular joint disorder (disord er) Temporomandibular Joint Disorder Bilateral Problem 02/03/2020 12:00:00 AM EST [facility] K58 Irritable Bowel Syndrome Irritable Bowel Syndrome Prob yoel 02/03/2020 12:00:00 AM EST PRABHA ([facility]) Z20.2 Contact with and (suspected) exposure to infections with a predominantly sexual mode of transmission Z20.2 - Contact with and (suspected) exp osure to infections with a predominantly sexual mode of transmission Diagnosis 03/30/2020 01:37:00 PM [facility] Surgeries/Procedures Procedure Description Date Indications Data Source(s) Panoramic radiographic image Panoramic radiographic image 12:00:00 AM EDT [facility] ([facility]) Limited Oral Evaluation Limited Oral Evaluation 11/05/2019 12:00:00 AM EDT PRABHA ([facility]) CVR Certified Medication Technician.Svc. Other 09/03/2019 12:00:00 AM EDT - 2019 12:00:00 AM EDT [facility] ([facility]) OFFICE VISIT, EST 09/03/2019 12:00:00 AM EDT - 020 12:00:00 AM EDT [facility] ([facility]) SMEAR, WET [place], SALINE/INK 06/11/2019 12:00:00 AM EDT - 06/11/2019 12:00:00 AM EDT [facility] ([facility]) ASSAY OF BODY FLUID ACIDITY 06/11/2019 1 2:00:00 AM EDT - 06/11/2019 12:00:00 AM EDT [facility] ([facility]) CVR Certified Medication Technician.Svc. STI / H 06/11/2019 12:00:00 AM EDT - 06/11/2019 12:00:00 AM EDT [facility] ([facility]) CVR Certified Medication Technician.Svc. Other 06/11/2019 12:00:00 AM EDT - 2019 12:00:00 AM EDT [facility] ([facility]) CVR Certified Medication Technician.Svc. Contraceptive 06/11/2019 12 :00:00 AM EDT - 06/11/2019 12:00:00 AM EDT [facility] ([facility]) CVR Med.Svc. Height/Weight 06/11/2019 12 :00:00 AM EDT - 06/11/2019 12:00:00 AM EDT [facility] ([facility]) CVR Blood Pressure 06/11/2019 12:00:00 AM EDT - 2019 12:00:00 AM EDT [facility] ([facility]) CVR Med.Svc. Other 06/11/2019 12:00:00 AM EDT - 2019 12:00:00 AM EDT [facility] ([facility]) HCS Without Test 06/11/2019 12:00:00 AM EDT - 06/11/19 20 12:00:00 AM EDT [facility] ([facility]) OFFICE VISIT, NEW 06/11/2019 12:00:00 AM EDT - 020 12:00:00 AM EDT [facility] ([facility]) N.GONORRHOEAE, SWAB 06/11/2019 12:00:00 AM EDT - 06/10 12:00:00 AM EDT [facility] ([facility]) CHYLMD TRACH, SWAB 06/11/2019 12:00:00 AM EDT - 2019 12:00:00 AM EDT [facility] ([facility]) DRS&/CHAGOMT PRTL-BROWNS CASIANO 1ST/SBSQ SMALL 03/16/2019 12:00:00 AM EST MEDENT ([facility], [facility]) Results ID Date Data Source [id number] 04/19/2020 10:30:00 AM EST [facility] Name Value Range Interpretation Code Description Data Akosua rce(s) Supporting Document(s) SARS coronavirus 2 RNA Not Detected [facility] This lab was ordered by [facility] and reported by [facility]. ID Date Data Source [id number] 04/08/2020 12:00:00 AM EST [facility] Name Value Range Interpretation Code Description Data Akosua rce(s) Supporting Document(s) 2019 Novel Coronavirus RNA Negative [facility] This lab was ordered by [facility] and reported by [facility]. ID Date Data Source [id number] 03/30/2020 07:25:00 PM EST [facility] Name Value Range Interpretation Code Description Data Akosua rce(s) Supporting Document(s) Syphilis Abs. to T. pallidum NON-REACTIVE NONREACTIVE [facility] The methodology uses the Siemens Atelli ca IM Syph assay which is a direct sandwich immunoassay used for the detection of Treponema pallidum antibodies in human serum or plasma. ID Date Data Source [id number] 04/02/2020 04:32:00 PM EST [facility] Name Value Range Interpretation Code Description Data Akosua rce(s) Supporting Document(s) HEPATITIS A ANTIBODY, IgM,S Negative Negative [facility] HEPATITIS A ANTIBODY, Total,S Negative Negative [facility] HEPATITIS B SURF ANTIGEN SCRN Negative Negative [facility] HEPATITIS B CORE ANTIBODY,IGM Negative Negative [facility] HEP B CORE ANTIBODY,TOTAL Negative Negative [facility] HEPATITIS B SURFACE ANTIBODY Reactive . [facility] Non Reactive: Inconsisten t with immunity, less than 10 mIU/mL Reactive: Consistent with immunity, greater than 9.9 mIU/mL HCV Ab,S <0.1 s/co ratio 0.0-0.9 [facility] HCV COMMENT [facility] Non reactive HCV antibody screen is con sistent with no HCV infection, unless recent infection is suspected or other evidence exists to indicate HCV infection. Performed at: [facility] [address] [id number] Reimbursement Manager: Noemi Kirby MD, Phone: [phone] ID Date Data Source [id number] 04/02/2020 04:32:00 PM EST [facility] Name Value Range Interpretation Code Description Data Akosua rce(s) Supporting Document(s) HSV 1 IgM,S <1:10 titer <1:10 [facility] HSV 2 IgM,S <1:10 titer <1:10 [facility] HSV 1 and HSV 2 share many cross-reacti ng antigens. Elevated titers to both HSV 1 and HSV 2 may represent crossreactive HSV antibodies rather than exposure to both HSV 1 and HSV 2. Results for this test are for research purposes only by the assay's oracle adf consultant. The performance characteristics of this product have not been established. Results should not be used as a diagnostic procedure without confirmation of the diagnosis by another medically established diagnostic product or procedure. Performed at: [facility] [id number] Reimbursement Manager: Roseann Montenegro MD, Phone: [phone] ID Date Data Source [id number] 04/02/2020 04:32:00 PM EST [facility] Value Range Interpretation Code Description Data Akosua rce(s) Supporting Document(s) HSV I IgG,S <0.91 index 0.00-0.90 [facility] Negati ve <0.91 Equivocal 0.91 - 1.09 Positive >1.09 Note: Negative indicates no antibodies detected to HSV-1. Equivocal may suggest early infection. If clinically appropriate, retest at later date. Positive indicates antibodies detected to HSV-1. HSV II IgG,S <0.91 index 0.00-0.90 [facility] Negati ve <0.91 Equivocal 0.91 - 1.09 Positive >1.09 Note: Negative indicates no antibodies detected to HSV-2. Equivocal may suggest early infection. If clinically appropriate, retest at later date. Positive indicates antibodies detected to HSV-2. Performed at: [facility] [address] [id number] Reimbursement Manager: Noemi Kirby MD, Phone: [phone] ID Date Data Source [id number] 04/02/2020 04:32:00 PM EST [facility] Name Value Range Interpretation Code Description Data Akosua rce(s) Supporting Document(s) HIV SCREEN 4TH GENERATION Non Reactive Non Reactive [facility] Performed at: RN - [facility] [address] [id number] Reimbursement Manager: Noemi Kirby MD, Phone: [phone] ID Date Data Source [id number] 03/31/2020 03:17:00 PM EST [facility] Name Value Range Interpretation Code Description Data Akosua rce(s) Supporting Document(s) TRISHA BY DNA PROBE NEGATIVE NEGATIVE [facility] GARDNERELLA BY DNA PROBE POSITIVE NEGATIVE [facility] TRICHOMONAS BY DNA PROBE NEGATIVE NEGATIVE [facility] TESTING PERFORMED BY NUCLEIC ACID HYBRI DIZATION ID Date Data Source [id number] 04/01/2020 08:53:00 AM EST [facility] Name Value Range Interpretation Code Description Data Akosua rce(s) Supporting Document(s) CHLAMYDIA, URINE NEGATIVE NEGATIVE [facility] GC, Urine NEGATIVE NEGATIVE [facility] ID Date Data Source [id number] 02/14/2020 06:25:00 AM EST MEDENT ([facility], ) Name Value Range Interpretation Code Description Data Akosua rce(s) Supporting Document(s) Elastase.pancreatic [Mass/mass] in Stool Laboratory test result Normal (applies to non-numeric results) MEDENT ([facility] ) <content>Result Units: ug Elast./g</cont ent>
<content>Severe Pancreatic Insufficiency: <100</content>
<content>Moderate Pancreatic Insufficiency: 100 - 200</content>
<content>Normal: >200</content>
<content></content> ID Date Data Source [id number] 02/14/2020 06:25:00 AM EST MEDENT ([facility], ) Name Value Range Interpretation Code Description Data Akosua rce(s) Supporting Document(s) Fats Total Laboratory test result Normal (applies to non-n umeric results) MEDENT ([facility], ) <content>Normal (<100 Droplets/HPF)</con tent>
<content></content> Fats Neutral Laboratory test result Normal (applies to non -numeric results) [facility]) <content>Normal (<60 Droplets/HPF)</cont ent>
<content></content> ID Date Data Source [id number] 02/14/2020 06:25:00 AM EST [facility] ([facility]) Name Value Range Interpretation Code Description Data Akosua rce(s) Supporting Document(s) Lactoferrin [Presence] in Stool by Immunoassay Laboratory test r esult Normal (applies to non-numeric results) [facility] ([facility], ) Calprotectin [Mass/mass] in Stool Laboratory test result 0-120 Normal (applies to non-numeric results) [facility] ([facility]) <content>Concentration Interpretatio n Follow-Up</content>
<content><16 - 50 ug/g Normal None</content>
<content>>50 -120 ug/g Borderline Re-evaluate in 4-6 weeks</content>
<content>>120 ug/g Abnormal Repeat as clinically</content>
<content>indicated</content>
<content>Performed at: RN - [facility]</content>
<content>[address], [place] [id number]</content>
<content>Reimbursement Manager: Noemi Kirby MD, Phone: [phone]</content>
<content>Performed at: - [facility]</content>
<content>[address] [place] [id number]</content>
<content>Reimbursement Manager: Roseann Montenegro MD, Phone: [phone]</content>
<content></content> ID Date Data Source [id number] 01/29/2020 09:49:00 AM EST [facility] ([facility]) Name Value Range Interpretation Code Description Data Akosua rce(s) Supporting Document(s) Helicobacter pylori IgG Ab [Units/volume] in Serum by Immunoassay Laboratory test result Normal (applies to non-numeric results) [facility]) SERUM SAMPLES OBTAINED TOO EARLY DURING INFECTION MAY NOT CONTAIN DETECTABLE ANTIBODIES. IF H. PYLORI INFECTION IS SUSPECTED WITH A "NEGATIVE" SERUM RESULT, A FOLLOW UP SPECIMEN IS RECOMMENDED IN 2-7 WEEKS. ID Date Data Source [id number] 01/29/2020 09:49:00 AM EST [facility]) Name Value Range Interpretation Code Description Data Akosua rce(s) Supporting Document(s) White Blood Count 8.7 10 4.0-10.0 Normal (applies to non-numeri c results) [facility]) Hemoglobin 14.0 g/dL 12.0-15.5 Normal (applies to non-numeric resul ts) [facility]) Hematocrit 43.6 % 36.0-47.0 Normal (applies to non-numeric resul ts) [facility]) Red Blood Count 4.77 10 4.00-5.40 Normal (applies to non-numeric results) [facility] ([facility]) Mean Corpuscular HGB Conc 32.1 g/dL 32.0-36.5 Normal (applies to non-numeric results) [facility]) Mean Corpuscular Hemoglobin 29.4 pg 27.0-33.0 Norm al (applies to non-numeric results) [facility]) Mean Corpuscular Volume 91.4 fl 80.0-96.0 Normal ( applies to non-numeric results) [facility]) Platelet Count, Automated 126 10 150-450 Below low normal [facility] ([facility]) Neutrophils % 69.0 % 36.0-66.0 Above high normal MEDE NT ([facility]) Red Cell Distribution Width 11.6 % 11.5-14.5 Norm al (applies to non-numeric results) [facility]) [place] % 5.1 % 0.0-5.0 Above high normal [facility] ([facility]) Eos % 0.2 % 0.0-3.0 Normal (applies to non-numeric resul ts) [facility] ([facility]) Lymph % 24.9 % 24.0-44.0 Normal (applies to non-numeric resul ts) [facility] ([facility]) Baso % 0.5 % 0.0-1.0 Normal (applies to non-numeric resul ts) [facility]) Immature Granulocyte % 0.3 % 0-3.0 Normal (applies to non-n umeric results) [facility] ([facility]) Nucleated Red Blood Cell % 0.0 % 0-0 Normal (applies to n on-numeric results) [facility] ([facility]) Lymph # 2.2 10 1.5-5.0 Normal (applies to non-numeric resul ts) [facility] ([facility]) Neutrophils # 6.0 10 1.5-8.5 Normal (applies to non-numeric re sults) [facility]) [place] # 0.4 10 0.0-0.8 Normal (applies to non-numeric resul ts) [facility] ([facility]) Eos # 0.0 10 0.0-0.5 Normal (applies to non-numeric resul ts) [facility] ([facility]) Baso # 0.0 10 0.0-0.2 Normal (applies to non-numeric resul ts) [facility]) ID Date Data Source [id number] 01/29/2020 09:49:00 AM EST [facility]) Name Value Range Interpretation Code Description Data Akosua rce(s) Supporting Document(s) Unitsiga For Gliadin Iga 3 units 0-19 Normal (applies to non -numeric results) [facility]) Negative 0 - 19 Weak Positive 20 - 30 Moderate to Strong Positive >30 Unitsigg For Gliadin Igg 2 units 0-19 Normal (applies to non -numeric results) [facility]) Negative 0 - 19 Weak Positive 20 - 30 Moderate to Strong Positive >30 Performed at: RN - [facility] [address] [id number] Reimbursement Manager: Noemi Kirby MD, Phone: [phone] ID Date Data Source [id number] 01/29/2020 09:49:00 AM EST [facility] ([facility]) Name Value Range Interpretation Code Description Data Akosua rce(s) Supporting Document(s) Alt/SGPT 15 U/L 12-78 Normal (applies to non-numeric resul ts) [facility] ([facility]) Ast/Sgot 12 U/L 7-37 Normal (applies to non-numeric resul ts) [facility] ([facility]) Bilirubin,Total 0.8 mg/dL 0.2-1.0 Normal (applies to non-numeric results) [facility] ([facility]) Bilirubin,Direct 0.2 mg/dL 0.0-0.2 Normal (applies to non-numeric results) [facility]) Alkaline Phosphatase 49 U/L 45-117 Normal (applies to non-num jagjit results) [facility] ([facility]) Albumin/Globulin Ratio 1.2 1.2-2.2 Normal (applies to non-n umeric results) [facility] ([facility]) Total Protein 7.6 GM/DL 6.4-8.2 Normal (applies to non-numeric re sults) [facility]) Albumin 4.2 GM/DL 3.2-5.2 Normal (applies to non-numeric resul ts) [facility]) ID Date Data Source [id number] 01/29/2020 09:49:00 AM EST [facility] ([facility]) Name Value Range Interpretation Code Description Data Akosua rce(s) Supporting Document(s) Erythrocyte sedimentation rate by Westergren method 2 mm/hr 0-20 Normal (applies to non-numeric results) [facility] ([facility]) C reactive protein [Mass/volume] in Serum or Plasma by High sensitivity method Laboratory test result 0.00-0.30 Normal (applies to non-numeric results) [facility]) ID Date Data Source [id number] SEDIMENTATION RATE 06/21/2019 12:00:00 AM EDT eC W1 ([facility]) Name Value Range Interpretation Code Description Data Akosua rce(s) Supporting Document(s) 6 0-20 ERYTHROCYTE SEDIMENTATION RATE eCW1 ([facility]) ID Date Data Source Comprehensive Metabolic Profile (CMP) 06/21/2019 12:00:00 AM EDT eCW1 ([facility]) Name Value Range Interpretation Code Description Data Akosua rce(s) Supporting Document(s) 78 70-100 GLUCOSE, FASTING eCW1 ([facility]) 12 7-18 BLOOD UREA NITROGEN eCW1 ([facility]) 0.73 0.55-1.30 CREATININE FOR GFR eCW1 ([facility]) > 60.0 >60 GLOMERULAR FILTRATION RATE eCW 1 ([facility]) 139 136-145 SODIUM LEVEL eCW1 ([facility]) 4.1 3.5-5.1 POTASSIUM SERUM eCW1 ([facility]) 105 98-107 CHLORIDE LEVEL eCW1 ([facility]) 29 21-32 CARBON DIOXIDE LEVEL eCW1 ([facility]) 9.7 8.5-10.1 CALCIUM LEVEL eCW1 ([facility]) 0.5 0.2-1.0 BILIRUBIN,TOTAL eCW1 ([facility]) 9 7-37 AST/SGOT eCW1 ([facility]) 57 45-117 ALKALINE PHOSPHATASE eCW1 ([facility]) 21 12-78 ALT/SGPT eCW1 ([facility]) 1.11 1.00-1.93 ALBUMIN/GLOBULIN RATIO eCW1 ([facility]) 7.8 6.4-8.2 TOTAL PROTEIN eCW1 ([facility]) 4.1 3.2-5.2 ALBUMIN eCW1 ([facility]) ID Date Data Source CBC - Complete Blood Count 06/21/2019 12:00:00 AM EDT eCW1 ( [facility]) Name Value Range Interpretation Code Description Data Akosua rce(s) Supporting Document(s) 4.77 4.00-5.40 RED BLOOD COUNT eCW1 ([facility]) 12.3 4.0-10.0 WHITE BLOOD COUNT eCW1 ([facility]) 14.2 12.0-15.5 HEMOGLOBIN eCW1 ([facility]) 44.0 36.0-47.0 HEMATOCRIT eCW1 ([facility]) 92.2 80.0-96.0 MEAN CORPUSCULAR VOLUME e CW1 ([facility]) 29.8 27.0-33.0 MEAN CORPUSCULAR HEMOGLOB IN eCW1 ([facility]) 32.3 32.0-36.5 MEAN CORPUSCULAR HGB CONC eCW1 ([facility]) 197 150-450 PLATELET COUNT, AUTOMATED eCW1 ([facility]) 11.6 11.5-14.5 RED CELL DISTRIBUTION WID TH eCW1 ([facility]) ID Date Data Source [id number] 06/11/2019 11:01:43 AM EDT NextGen ([facility]) Name Value Range Interpretation Code Description Data Akosua rce(s) Supporting Document(s) Hyphae/Trisha: noBudding y east: noTrich: noClue cells: noWBCs: noAmine/Whiff test: negativepH: 4.5 [place] NextGen ([facility]) ID Date Data Source [id number] 06/11/2019 11:01:27 AM EDT NextGen ([facility]) Name Value Range Interpretation Code Description Data Akosua rce(s) Supporting Document(s) pH: 4.5. Vaginal pH [facility] ([facility]) ID Date Data Source [id number] 06/11/2019 12:00:00 AM EDT NextGen ([facility]) Name Value Range Interpretation Code Description Data Akosua rce(s) Supporting Document(s) Negative Normal (applies to non-numer ic results) [place] Amplified CT/GC Combo - GC NextGen ([facility]) : No Performed by: MELIDA ([id number]) ID Date Data Source [id number] 06/11/2019 12:00:00 AM EDT NextGen ([facility]) Name Value Range Interpretation Code Description Data Akosua rce(s) Supporting Document(s) Negative Normal (applies to non-numer ic results) [place] Amplified CT/GC Combo - CT NextGen ([facility]) Procedure Social History Code Duration Value Status Description Data Source(s ) Smoking 02/03/2020 12:00:00 AM EST Ex-smoker (finding) complet ed Ex-smoker (finding) PRABHA ([facility]) Smoking 09/03/2019 12:00:00 AM EDT Never smoker completed Never s moker NextGen ([facility]) Smoking 08/30/2019 12:00:00 AM EDT Never Smoker completed Never S moker eCW1 ([facility]) Smoking 08/30/2019 12:00:00 AM EDT Never Smoker completed Never S moker eCW1 ([facility]) Vital Signs ID Date Data Source UNK Name Value Range Interpretation Code Description Data Source(s) Body surface area Derived from formula 1.69 m2 1.69 m2 [facility] ([facility]) Body weight 61.236 kg 61.236 kg [facility] ([facility]) [place] body weight 130 [lb_av] 130 [lb_av] [facility] ([facility]) Body mass index (BMI) [Ratio] 21.8 kg/m2 21.8 k g/m2 [facility] ([facility]) Body weight 135.00 [lb_av] 135.00 [lb_av] [facility] Body height 66 [in_i] 66 [in_i] [facility] ([facility]) 5'6" Diastolic blood pressure 74 mm[Hg] 74 mm[Hg] [facility] ([facility]) Systolic blood pressure 126 mm[Hg] 126 mm[Hg] M [facility] ([facility], ) PhenX - pain, abdominal - type and intensity protocol 0 0 PRABHA ([facility]) UNABLE TO OBTAIN V/S Body height 66 [in_i] 66 [in_i] [facility] ([facility]) 5'6" Diastolic blood pressure 70 mm[Hg] 70 mm[Hg] [facility] ([facility]) Systolic blood pressure 116 mm[Hg] 116 mm[Hg] [facility] Body surface area Derived from formula 1.66 m2 1.66 m2 [facility] ([facility]) Body weight 58.514 kg 58.514 kg [facility] ([facility]) [place] body weight 130 [lb_av] 130 [lb_av] MEDEN T ([facility]) Body mass index (BMI) [Ratio] 20.8 kg/m2 20.8 k g/m2 [facility] ([facility]) Body weight 129.00 [lb_av] 129.00 [lb_av] MED[facility] T ([facility]) Diastolic blood pressure 78 mm[Hg] 78 mm[Hg] eCW1 ([facility]) Systolic blood pressure 126 mm[Hg] 126 mm[Hg] e CW1 ([facility]) Body temperature 96.3 [degF] 96.3 [degF] eCW1 ( [facility]) Respiratory rate 18 /min 18 /min eCW1 ([facility]) Heart rate 114 /min 114 /min eCW1 ([facility]) Body mass index (BMI) [Ratio] 20.66 kg/m2 20.66 kg/m2 eCW1 ([facility]) Body height 66 [in_us] 66 [in_us] eCW1 ([facility]) Body weight Measured 128 [lb_av] 128 [lb_av] eC W1 ([facility]) Body mass index (BMI) [Ratio] 20.82 kg/m2 20.82 kg/m2 NextGen ([facility]) Diastolic blood pressure 74 mm[Hg] 74 mm[Hg] NextGen ([facility]) Systolic blood pressure 106 mm[Hg] 106 mm[Hg] N extGen ([facility]) Body weight 58.513 kg 58.513 kg [facility] ([facility]) Body height 167.64 cm 167.64 cm [facility] ([facility]) Oxygen saturation in Arterial blood by Pulse oximetry 99 % 99 % MEDENT ([facility], [facility]) Respiratory rate 16 /min 16 /min [facility] ( [facility], [facility]) Heart rate 100 /min 100 /min [facility] ([facility], [facility]) Diastolic blood pressure 80 mm[Hg] 80 mm[Hg] [facility] ([facility], [facility]) Systolic blood pressure 123 mm[Hg] 123 mm[Hg] M EDENT ([facility], [facility]) Body mass index (BMI) [Ratio] 21.0 kg/m2 21.0 k g/m2 [facility] ([facility], [facility]) Body height 66 [in_i] 66 [in_i] [facility] ([facility]) 5'6" Body weight 130.00 [lb_av] 130.00 [lb_av] MEDEN T ([facility], [facility]) Body temperature 98.7 [degF] 98.7 [degF] [facility] ([facility]) Diastolic blood pressure 84 mm[Hg] 84 mm[Hg] eCW1 ([facility]) Systolic blood pressure 132 mm[Hg] 132 mm[Hg] e CW1 ([facility]) Body mass index (BMI) [Ratio] 20.14 kg/m2 20.14 kg/m2 W1 ([facility]) Body height 66 [in_us] 66 [in_us] eCW1 ([facility]) Body weight Measured 124.8 [lb_av] 124.8 [lb_av ] W ([facility]) Body weight 130.00 [lb_av] 130.00 [lb_av] MEDEN T ([facility], [facility]) Body temperature 98.6 [degF] 98.6 [degF] [facility] ([facility], [facility]) Oxygen saturation in Arterial blood by Pulse oximetry 98 % 98 % [facility] ([facility], [facility]) Respiratory rate 16 /min 16 /min [facility] ( [facility], [facility]) Heart rate 80 /min 80 /min [facility] ([facility], [facility]) Diastolic blood pressure 76 mm[Hg] 76 mm[Hg] [facility] ([facility], [facility]) Systolic blood pressure 112 mm[Hg] 112 mm[Hg] [facility] ([facility]) Body mass index (BMI) [Ratio] 21.0 kg/m2 21.0 k g/m2 [facility] ([facility], [facility]) Body height 66 [in_i] 66 [in_i] [facility] ([facility]) 5'6" Body mass index (BMI) [Ratio] 21.0 kg/m2 21.0 k g/m2 [facility] ([facility]) Body height 66 [in_i] 66 [in_i] [facility] ([facility]) 5'6" Body weight 130.00 [lb_av] 130.00 [lb_av] MEDEN T ([facility], [facility]) Body temperature 99.0 [degF] 99.0 [degF] [facility] ([facility]) Oxygen saturation in Arterial blood by Pulse oximetry 99 % 99 % [facility] ([facility], [facility]) Respiratory rate 15 /min 15 /min [facility] ( [facility], [facility]) Heart rate 58 /min 58 /min [facility] ([facility], [facility]) Diastolic blood pressure 60 mm[Hg] 60 mm[Hg] [facility] ([facility], [facility]) Systolic blood pressure 118 mm[Hg] 118 mm[Hg] [facility] ([facility]) Patient Treatment Plan of Care Planned Activity Planned Date Details Description Data Source (s) Fluoxetine 10 MG Oral Tablet 02/03/2020 12:00:00 AM [facility]) Misoprostol 0.2 MG Oral Tablet 04/01/2019 12:00:00 AM EST eCW1 ([facility])
--- NOTE | 2020-04-24 10:55 | ROOR ---
Patient Name: Esau Goddard Procedure Date: 04/24/2020 9:59 AM Date of : 1995 Age: 25 Room: [facility] Gender: Female Note Status: Finalized Procedure: Upper GI endoscopy Indications: Dyspepsia Providers: Edgar Salcido MD Referring MD: DEB TEE NP Requesting Provider: Medicines: Monitored Anesthesia Care Complications: No immediate complications. Procedure: Pre-Anesthesia Assessment: - Prior to the procedure, a History and Physical was performed, and patient medications and allergies were reviewed. The patient is competent. The risks and benefits of the procedure and the sedation options and risks were discussed with the patient. All questions were answered and informed consent was obtained. Patient identification and proposed procedure were verified by the physician, the nurse and the anesthesiologist in the procedure room. Mental Status Examination: alert and oriented. Airway Examination: normal oropharyngeal airway and neck mobility. Respiratory Examination: clear to auscultation. CV Examination: normal. Prophylactic Antibiotics: The patient does not require prophylactic antibiotics. Prior Anticoagulants: The patient has taken no previous anticoagulant or antiplatelet agents. ASA Grade Assessment: II - A patient with mild systemic disease. After reviewing the risks and benefits, the patient was deemed in satisfactory condition to undergo the procedure. The anesthesia plan was to use monitored anesthesia care (MAC). Immediately prior to administration of medications, the patient was re-assessed for adequacy to receive sedatives. The heart rate, respiratory rate, oxygen saturations, blood pressure, adequacy of pulmonary ventilation, and response to care were monitored throughout the procedure. The physical status of the patient was re-assessed after the procedure. The Endoscope was introduced through the mouth, and advanced to the second part of duodenum. The upper GI endoscopy was accomplished without difficulty. The patient tolerated the procedure well. Findings: The examined esophagus was normal. Scattered mild inflammation characterized by erythema was found in the gastric antrum. Biopsies were taken with a cold forceps for Helicobacter pylori testing. Verification of patient identification for the specimen was done by the physician and nurse using the patient's name, date and medical record number. Estimated blood loss was minimal. The duodenal bulb and second portion of the duodenum were normal. Biopsies for histology were taken with a cold forceps for evaluation of celiac disease. Impression: - Normal esophagus. - Gastritis. Biopsied. - Normal duodenal bulb and second portion of the duodenum. Biopsied. Recommendation: - Patient has a contact number available for emergencies. The signs and symptoms of potential delayed complications were discussed with the patient. Return to normal activities tomorrow. Written discharge instructions were provided to the patient. - High fiber diet. - Continue present medications. - Await pathology results. - Telephone GI clinic for pathology results in 2 weeks. - Return to primary care physician. Procedure Code(s): --- Professional --- 26468, Esophagogastroduodenoscopy, flexible, transoral; with biopsy, single or multiple Diagnosis Code(s): --- Professional --- K29.70, Gastritis, unspecified, without bleeding R10.13, Epigastric pain CPT copyright 2019 [employer]. All rights reserved. The codes documented in this report are preliminary and upon program or project administrator review may be revised to meet current compliance requirements. Edgar Salcido MD Edgar Salcido MD 04/24/2020 10:54:31 AM Electronically signed by Edgar Salcido MD Number of Addenda: 0 Note Initiated On: 04/24/2020 9:59 AM Estimated Blood Loss: Estimated blood loss was minimal.
--- NOTE | 2020-04-24 11:01 | ROOR ---
Patient Name: Esau Goddard Procedure Date: 04/24/2020 10:00 AM Date of : 1995 Age: 25 Room: [facility] Gender: Female Note Status: Finalized Procedure: Colonoscopy Indications: Change in bowel habits, Chronic diarrhea Providers: Edgar Salcido MD Referring MD: DEB TEE NP Requesting Provider: Medicines: Monitored Anesthesia Care Complications: No immediate complications. Procedure: Pre-Anesthesia Assessment: - Prior to the procedure, a History and Physical was performed, and patient medications and allergies were reviewed. The patient is competent. The risks and benefits of the procedure and the sedation options and risks were discussed with the patient. All questions were answered and informed consent was obtained. Patient identification and proposed procedure were verified by the physician, the nurse and the anesthesiologist in the procedure room. Mental Status Examination: alert and oriented. Airway Examination: normal oropharyngeal airway and neck mobility. Respiratory Examination: clear to auscultation. CV Examination: normal. Prophylactic Antibiotics: The patient does not require prophylactic antibiotics. Prior Anticoagulants: The patient has taken no previous anticoagulant or antiplatelet agents. ASA Grade Assessment: II - A patient with mild systemic disease. After reviewing the risks and benefits, the patient was deemed in satisfactory condition to undergo the procedure. The anesthesia plan was to use monitored anesthesia care (MAC). Immediately prior to administration of medications, the patient was re-assessed for adequacy to receive sedatives. The heart rate, respiratory rate, oxygen saturations, blood pressure, adequacy of pulmonary ventilation, and response to care were monitored throughout the procedure. The physical status of the patient was re-assessed after the procedure. The Colonoscope was introduced through the anus and advanced to the terminal ileum, with identification of the appendiceal orifice and IC valve. The colonoscopy was performed without difficulty. The patient tolerated the procedure well. The quality of the bowel preparation was good. The terminal ileum, ileocecal valve, appendiceal orifice, and rectum were photographed. Scope insertion time was 2 minutes. Scope withdrawal time was 8 minutes. The total duration of the procedure was 10 minutes. Findings: The perianal and digital rectal examinations were normal. The terminal ileum appeared normal. The colon (entire examined portion) was moderately tortuous. Normal mucosa was found in the entire colon. Biopsies for histology were taken with a cold forceps from the right colon, left colon and rectosigmoid colon for evaluation of microscopic colitis. Verification of patient identification for the specimen was done by the physician and nurse using the patient's name, date and medical record number. Estimated blood loss was minimal. Non-bleeding external and internal hemorrhoids were found during retroflexion. The hemorrhoids were small. Impression: - The examined portion of the ileum was normal. - Tortuous colon. - Normal mucosa in the entire examined colon. Biopsied. - Non-bleeding external and internal hemorrhoids. Recommendation: - Patient has a contact number available for emergencies. The signs and symptoms of potential delayed complications were discussed with the patient. Return to normal activities tomorrow. Written discharge instructions were provided to the patient. - High fiber diet. - Continue present medications. - Await pathology results. - Repeat colonoscopy at age 48 for screening purposes. - Telephone GI clinic for pathology results in 2 weeks. - Return to primary care physician. Procedure Code(s): --- Professional --- 51983, Colonoscopy, flexible; with biopsy, single or multiple Diagnosis Code(s): --- Professional --- K64.8, Other hemorrhoids R19.4, Change in bowel habit K52.9, Noninfective gastroenteritis and colitis, unspecified Q43.8, Other specified congenital malformations of intestine CPT copyright 2019 [employer]. All rights reserved. The codes documented in this report are preliminary and upon pet caregiver review may be revised to meet current compliance requirements. Edgar Salcido MD Edgar Salcido MD 04/24/2020 11:01:34 AM Electronically signed by Edgar Salcido MD Number of Addenda: 0 Note Initiated On: 04/24/2020 10:00 AM Estimated Blood Loss: Estimated blood loss was minimal.
[2020-04-24 11:10] VITALS: BP 117/76
== END 2020-04-24 11:15 | disposition home or self-care (01) ==
LOC: M OPP 09:26
PROVIDERS: ATTEND Internal Medicine Gastroenterology
DX: R19.4 Change in bowel habit (principal); K52.9 Noninfective gastroenteritis and colitis, unspecified; R10.13 Epigastric pain; D12.6 Benign neoplasm of colon, unspecified; Q43.8 Other specified congenital malformations of intestine; K64.8 Other hemorrhoids; D13.1 Benign neoplasm of stomach; D13.39 Benign neoplasm of other parts of small intestine; K29.70 Gastritis, unspecified, without bleeding; F41.9 Anxiety disorder, unspecified; F32.9 Major depressive disorder, single episode, unspecified; G43.909 Migraine, unspecified, not intractable, without status migrainosus; Z88.1 Allergy status to other antibiotic agents; Z79.899 Other long term (current) drug therapy; Z83.79 Family history of other diseases of the digestive system; Z80.0 Family history of malignant neoplasm of digestive organs; Z82.49 Family history of ischemic heart disease and other diseases of the circulatory system; Z80.8 Family history of malignant neoplasm of other organs or systems
CPT/HCPCS: 43239; 45380; 88305; J3010

== ENCOUNTER 2020-10-04 21:25 | Emergency (ER) | payer BC ==
[~2020-10-04] VITALS: Ht 167.6 cm; Wt 61.6 kg
[~2020-10-04 21:25] MED LIST changes: -LIDOCAINE 2% 100MG/5ML SDV (FOR ANES.) As Ordered ONE; -NS 1,000 ML IV ONE; -fentaNYL 100 MCG/2 ML INJECTION (J3010) As Ordered ONE; -propofoL 200 MG/20 ML VIAL As Ordered ONE
[2020-10-04] MEDS ORDERED: LEXA1TAB PO (21:44)
[2020-10-04] MEDS ORDERED: NS 1,000 ML IV ONE (22:05)
[2020-10-04 22:19] LABS: BASO # 0.1 10^3/uL (0.0-0.2); BASO % 0.3 % (0.0-1.0); HEMATOCRIT 40.6 % (36.0-47.0); HEMOGLOBIN 13.5 g/dl (12.0-15.5); LYMPH # 1.4 10^3/uL (1.5-5.0); LYMPH % 8.8 % (24.0-44.0); MEAN CORPUSCULAR HEMOGLOBIN 29.5 pg (27.0-33.0); MEAN CORPUSCULAR HGB CONC 33.3 g/dl (32.0-36.5); MEAN CORPUSCULAR VOLUME 88.8 fl (80.0-96.0); MONO # 0.9 10^3/uL (0.0-0.8); MONO % 5.7 % (2.0-8.0); NEUTROPHILS # 13.4 10^3/uL (1.5-8.5); NEUTROPHILS % 84.9 % (36.0-66.0); PLATELET COUNT, AUTOMATED 113 10^3/uL (150-450); RED BLOOD COUNT 4.57 10^6/uL (4.00-5.40); WHITE BLOOD COUNT 15.9 10^3/uL (4.0-10.0)
[2020-10-04] MEDS ORDERED: HALOPERIDOL 5MG/ML VIAL (J1630 PER 1) IV STA (22:24)
[2020-10-04 22:49] LABS: ALBUMIN 4.2 GM/DL (3.2-5.2); BILIRUBIN,DIRECT 0.2 MG/DL (0.0-0.2); BILIRUBIN,TOTAL 0.5 MG/DL (0.2-1.0); TOTAL PROTEIN 7.6 GM/DL (6.4-8.2)
[2020-10-04] MEDS ORDERED: ONDANSETRON 4MG/2ML VIAL IV ONE (23:40)
[2020-10-05] MEDS ORDERED: ONDA4TAB6 PO (00:20)
[2020-10-05 00:58] VITALS: BP 119/75
== END 2020-10-05 00:56 | disposition home or self-care (01) ==
LOC: M ED 21:25
DX: F12.288 Cannabis dependence with other cannabis-induced disorder (principal); Z88.1 Allergy status to other antibiotic agents; Z79.899 Other long term (current) drug therapy
CPT/HCPCS: 36415; 80047; 80076; 83690; 84702; 85025; 96361; 96374; 96375; 99284; J1630; J2405

== ENCOUNTER → 2020-12-10 | Outpatient (CLI) | payer BC ==
[~2020-12-10] MED LIST changes: +LEXA1TAB PO; +ONDA4TAB6 PO
[2020-12-10 20:37] LABS: BASO % 0.5 % (0.0-1.0); EOS # 0.1 10^3/uL (0.0-0.5); EOS % 0.8 % (0.0-3.0); HEMATOCRIT 42.5 % (36.0-47.0); HEMOGLOBIN 13.6 g/dl (12.0-15.5); LYMPH # 2.6 10^3/uL (1.5-5.0); LYMPH % 29.9 % (24.0-44.0); MEAN CORPUSCULAR HEMOGLOBIN 29.8 pg (27.0-33.0); MEAN CORPUSCULAR VOLUME 93.2 fl (80.0-96.0); MONO # 0.6 10^3/uL (0.0-0.8); MONO % 6.5 % (2.0-8.0); NEUTROPHILS # 5.5 10^3/uL (1.5-8.5); NEUTROPHILS % 62.1 % (36.0-66.0); PLATELET COUNT, AUTOMATED 155 10^3/uL (150-450); RED BLOOD COUNT 4.56 10^6/uL (4.00-5.40); WHITE BLOOD COUNT 8.8 10^3/uL (4.0-10.0)
[2020-12-10 20:56] LABS: ALT/SGPT 21 U/L (12-78); BILIRUBIN,TOTAL 0.5 MG/DL (0.2-1.0); BLOOD UREA NITROGEN 10 MG/DL (7-18); CALCIUM LEVEL 9.2 MG/DL (8.5-10.1); CARBON DIOXIDE LEVEL 31 MEQ/L (21-32); CHLORIDE LEVEL 103 MEQ/L (98-107); CREATININE FOR GFR 0.69 MG/DL (0.55-1.30); FOLATE 22.5 NG/ML; GLOMERULAR FILTRATION RATE > 60.0 (>60); GLUCOSE, FASTING 58 MG/DL (70-100); RHEUMATOID FACTOR QUANT < 10.0 IU/ML (<15.0); SODIUM LEVEL 141 MEQ/L (136-145); THYROID STIMULATING HORMONE 0.521 uIU/ML (0.358-3.740); TOTAL PROTEIN 7.3 GM/DL (6.4-8.2); VITAMIN B12 LEVEL 908 PG/ML
[2020-12-10 21:03] LABS: ERYTHROCYTE SEDIMENTATION RATE 3 mm/hr (0-20)
== END ==
LOC: M LABDRWAD 14:44
PROVIDERS: ATTEND Psychiatry & Neurology Neurology
DX: R51.9 Headache, unspecified (principal)

== ENCOUNTER → 2021-03-17 | Outpatient (CLI) | payer BC ==
[2021-03-17 13:18] LABS: BASO # 0.1 10^3/uL (0.0-0.2); BASO % 0.6 % (0.0-1.0); EOS % 0.3 % (0.0-3.0); HEMATOCRIT 43.8 % (36.0-47.0); HEMOGLOBIN 14.2 g/dl (12.0-15.5); LYMPH % 22.1 % (24.0-44.0); MEAN CORPUSCULAR HEMOGLOBIN 29.7 pg (27.0-33.0); MEAN CORPUSCULAR HGB CONC 32.4 g/dl (32.0-36.5); MEAN CORPUSCULAR VOLUME 91.6 fl (80.0-96.0); MONO # 0.4 10^3/uL (0.0-0.8); MONO % 4.6 % (2.0-8.0); NEUTROPHILS # 6.5 10^3/uL (1.5-8.5); NEUTROPHILS % 72.2 % (36.0-66.0); PLATELET COUNT, AUTOMATED 147 10^3/uL (150-450); RED BLOOD COUNT 4.78 10^6/uL (4.00-5.40)
[2021-03-17 13:55] LABS: ALT/SGPT 22 U/L (12-78); BILIRUBIN,TOTAL 0.6 MG/DL (0.2-1.0); BLOOD UREA NITROGEN 13 MG/DL (7-18); CALCIUM LEVEL 9.7 MG/DL (8.5-10.1); CARBON DIOXIDE LEVEL 29 MEQ/L (21-32); CHLORIDE LEVEL 104 MEQ/L (98-107); CHOLESTEROL LEVEL 186 MG/DL (<200); CHOLESTEROL RISK RATIO 2.583 (<5); CREATININE FOR GFR 0.77 MG/DL (0.55-1.30); FERRITIN 38 NG/ML (8-252); FREE T3 3.2 PG/ML (2.2-4.0); FREE T4 1.02 NG/DL (0.76-1.46); GLOMERULAR FILTRATION RATE > 60.0 (>60); GLUCOSE, FASTING 91 MG/DL (70-100); HDL CHOLESTEROL 72 MG/DL (>40); IRON (FE) 163 UG/DL (50-170); LDL CHOLESTEROL 92 MG/DL (<100); NON-HDL-C 114 MG/DL; PERCENT SATURATION 37.6 % (13.2-45.0); POTASSIUM SERUM 4.1 MEQ/L (3.5-5.1); SODIUM LEVEL 139 MEQ/L (136-145); T UPTAKE 30 % (30-39); THYROGLOBULIN ANTIBODY < 15.0 U/ML (<60.0); THYROID PEROXIDASE ANTIBODY 373.4 U/ML (<60.0); THYROID STIMULATING HORMONE 0.781 uIU/ML (0.358-3.740); THYROXINE (T4) 11.3 UG/DL (4.5-12.0); TOTAL IRON BINDING CAPACITY 434 UG/DL (250-450); TOTAL PROTEIN 7.5 GM/DL (6.4-8.2); TRIGLYCERIDES LEVEL 108 MG/DL (<150); VITAMIN B12 LEVEL 656 PG/ML (247-911)
== END ==
LOC: M ADAMS 09:33
PROVIDERS: ATTEND Nurse Practitioner Family
DX: R53.83 Other fatigue (principal)

== ENCOUNTER → 2022-10-20 | Outpatient (REF) | payer BC ==
[~2022-10-20] MED LIST changes: +ETON1VAG7 IU; -NUVAMIS2 IU
== END ==
LOC: M LABDRWAD 13:11
PROVIDERS: ATTEND Internal Medicine Gastroenterology
DX: K58.0 Irritable bowel syndrome with diarrhea (principal); R10.13 Epigastric pain

== ENCOUNTER → 2022-10-31 | Outpatient (REF) | payer BC | LOC: M SFHCADAM 12:33 | PROVIDERS: ATTEND Family Medicine | DX: K58.0 Irritable bowel syndrome with diarrhea (principal) ==

== ENCOUNTER → 2022-10-31 | Outpatient (REF) | payer BC | LOC: M LAB REF 13:27 | PROVIDERS: ATTEND Internal Medicine Gastroenterology | DX: R10.13 Epigastric pain (principal); K58.0 Irritable bowel syndrome with diarrhea ==

== ENCOUNTER → 2023-01-06 | Outpatient (REF) | LOC: M EMP 15:20 | PROVIDERS: ATTEND Family Medicine | DX: Z11.52 Encounter for screening for COVID-19 (principal) ==

== ENCOUNTER → 2023-10-31 | Outpatient (CLI) | payer BC ==
[~2023-10-31] MED LIST changes: +ONDA-282 PO; -ONDA4TAB6 PO
[2023-10-31 18:11] LABS: HEMATOCRIT 41.2 % (36.0-47.0); HEMOGLOBIN 14.2 g/dl (12.0-15.5); MEAN CORPUSCULAR HEMOGLOBIN 29.9 pg (27.0-33.0); MEAN CORPUSCULAR HGB CONC 34.5 g/dl (32.0-36.5); MEAN CORPUSCULAR VOLUME 86.7 fl (80.0-96.0); PLATELET COUNT, AUTOMATED 163 10^3/uL (150-450); RED BLOOD COUNT 4.75 10^6/uL (4.00-5.40); WHITE BLOOD COUNT 11.7 10^3/uL (4.0-10.0)
[2023-10-31 19:13] LABS: HIV 1&2 SCREEN NEGATIVE (NEGATIVE)
[2023-10-31 19:20] LABS: HEPATITIS C VIRUS ABY INDEX < 0.02 INDEX (<0.8)
[2023-10-31 20:00] LABS: GC DNA AMPLIFICATION NEGATIVE (NEGATIVE)
== END ==
LOC: M PLALAB 15:34
PROVIDERS: ATTEND Advanced Practice Midwife
DX: Z34.01 Encounter for supervision of normal first pregnancy, first trimester (principal)

== ENCOUNTER → 2023-12-22 | Outpatient (CLI) | payer BC | LOC: M RAD 10:21 | PROVIDERS: ATTEND Obstetrics & Gynecology | DX: Z34.02 Encounter for supervision of normal first pregnancy, second trimester (principal) ==

== ENCOUNTER → 2024-01-02 | Outpatient (CLI) | payer BC | LOC: M WHC 09:45 | PROVIDERS: ATTEND Obstetrics & Gynecology | DX: Z34.02 Encounter for supervision of normal first pregnancy, second trimester (principal) ==

== ENCOUNTER → 2024-01-29 | Outpatient (CLI) | payer BC | LOC: M WHC 09:57 | PROVIDERS: ATTEND Advanced Practice Midwife | DX: Z34.82 Encounter for supervision of other normal pregnancy, second trimester (principal); Z3A.24 24 weeks gestation of pregnancy ==

== ENCOUNTER → 2024-02-05 | Outpatient (CLI) | payer BC | LOC: M PLALAB 10:14 | PROVIDERS: ATTEND Obstetrics & Gynecology | DX: Z34.02 Encounter for supervision of normal first pregnancy, second trimester (principal); Z3A.00 Weeks of gestation of pregnancy not specified ==

== ENCOUNTER → 2024-02-05 | Outpatient (CLI) | payer BC ==
[2024-02-05 12:40] LABS: HEMATOCRIT 38.9 % (36.0-47.0); MEAN CORPUSCULAR HGB CONC 33.4 g/dl (32.0-36.5); MEAN CORPUSCULAR VOLUME 92.8 fl (80.0-96.0); PLATELET COUNT, AUTOMATED 127 10^3/uL (150-450); RED BLOOD COUNT 4.19 10^6/uL (4.00-5.40); WHITE BLOOD COUNT 13.7 10^3/uL (4.0-10.0)
[2024-02-05 13:10] LABS: GLUCOSE CHALLENGE TEST 1 HOUR 83 MG/DL (LESS THAN 140)
[2024-02-05 13:40] LABS: HIV 1&2 SCREEN NEGATIVE (NEGATIVE)
[2024-02-05 13:48] LABS: HEPATITIS C VIRUS ABY INDEX 0.02 INDEX (<0.8)
[2024-02-05 14:17] LABS: GC DNA AMPLIFICATION NEGATIVE (NEGATIVE)
== END ==
LOC: M PLALAB 10:17
PROVIDERS: ATTEND Advanced Practice Midwife
DX: Z34.82 Encounter for supervision of other normal pregnancy, second trimester (principal)

== ENCOUNTER → 2024-03-06 | Outpatient (REF) | payer BC, MEDICAID ==
[~2024-03-06] MED LIST changes: +PRENTAB9 PO
[2024-03-06 14:51] LABS: Trichomonas vaginalis (AMP) NOT DETECTED (NEGATIVE)
[2024-03-06 15:15] LABS: GC DNA AMPLIFICATION NEGATIVE (NEGATIVE)
== END ==
LOC: M SFHCWAGY 13:07
PROVIDERS: ATTEND Nurse Practitioner Family
DX: Z34.03 Encounter for supervision of normal first pregnancy, third trimester (principal); Z11.3 Encounter for screening for infections with a predominantly sexual mode of transmission

== ENCOUNTER 2024-03-07 14:29 | Outpatient (CLI) | payer BC, MEDICAID ==
[~2024-03-07] VITALS: Ht 167.6 cm; Wt 75.4 kg
[~2024-03-07 14:29] MED LIST changes: -PRENTAB9 PO
[2024-03-07] MEDS ORDERED: PRENTAB9 PO (14:42)
[2024-03-07] MEDS ORDERED: HOME MED LIST COMPLETE! XX SCH (14:45)
[2024-03-07 14:49] VITALS: BP 117/68
== END 2024-03-07 15:42 | disposition home or self-care (01) ==
LOC: M LDO 14:29
PROVIDERS: ATTEND Obstetrics & Gynecology
DX: O26.893 Other specified pregnancy related conditions, third trimester (principal); N89.8 Other specified noninflammatory disorders of vagina; Z3A.29 29 weeks gestation of pregnancy
CPT/HCPCS: 59025; G0463

== ENCOUNTER → 2024-03-29 | Outpatient (CLI) | payer MEDICAID, OTHER ==
[~2024-03-29] MED LIST changes: +PRENTAB9 PO
== END ==
LOC: M RAD 15:43
PROVIDERS: ATTEND Specialist
DX: Z34.03 Encounter for supervision of normal first pregnancy, third trimester (principal)

== ENCOUNTER → 2024-04-22 | Outpatient (REF) | payer MEDICAID | LOC: M SFHCWAGY 13:03 | PROVIDERS: ATTEND Obstetrics & Gynecology | DX: Z36.89 Encounter for other specified antenatal screening (principal); Z3A.36 36 weeks gestation of pregnancy ==

== ENCOUNTER 2024-05-03 10:00 | Inpatient (IN) | payer OTHER ==
[~2024-05-03] VITALS: Ht 167.6 cm; Wt 87.7 kg
[~2024-05-03 10:00] MED LIST changes: +BACI1TAB20 PO; +VITA100065 PO
[2024-05-04] MEDS ORDERED: MUCI1TAB16 PO (07:13)
[2024-05-04] MEDS ORDERED: ACET-907 PO (07:14)
[2024-05-10] VITALS (10 sets, daily range): BP systolic 107–133; BP diastolic 59–89; TEMP 97.1; O2SAT 97–100
[2024-05-10 07:03] LABS: HEMATOCRIT 43.1 % (36.0-47.0); HEMOGLOBIN 14.8 g/dl (12.0-15.5); MEAN CORPUSCULAR HGB CONC 34.3 g/dl (32.0-36.5); MEAN CORPUSCULAR VOLUME 90.2 fl (80.0-96.0); PLATELET COUNT, AUTOMATED 117 10^3/uL (150-450); RED BLOOD COUNT 4.78 10^6/uL (4.00-5.40); WHITE BLOOD COUNT 11.3 10^3/uL (4.0-10.0)
[2024-05-10] MEDS ORDERED: MORPHINE PRES-FREE INJ 10 MG/10 ML VIAL As Ordered ONE (07:14)
[2024-05-10] MEDS ORDERED: OXYTOCIN 30UNITS IN 0.9% NaCl 500ML IV BAG As Ordered ONE (07:17)
[2024-05-10] MEDS ORDERED: ONDANSETRON 4MG 2ML VIAL As Ordered ONE (07:18)
[2024-05-10] MEDS ORDERED: OXYTOCIN INJ 10UNITS/ML 1ML VIAL As Ordered ONE (07:18)
[2024-05-10] MEDS: BICITRA 30ML SOLN UDC PO ONE (07:21)
[2024-05-10] MEDS: LACTATED RINGER'S 1000 ML IV STA (07:21)
[2024-05-10] MEDS: LR 1,000 ML IV SCH ×2 (07:21→08:00)
[2024-05-10] MEDS: ceFAZolin SOD 2 GM in IV 1 EA IV ONE (07:21)
[2024-05-10] MEDS ORDERED: METHYLERGONOVINE MALEATE 0.2 MG TAB PO PRN (08:00)
[2024-05-10] MEDS ORDERED: MOM 30ML SUSPENSION UDC PO PRN (08:00)
[2024-05-10] MEDS ORDERED: ANUSOL HC CREAM 30GM TOP PRN (08:00)
[2024-05-10] MEDS ORDERED: CALCIUM CARBONATE 500 MG CHEW U/D PO PRN (08:00)
[2024-05-10] MEDS ORDERED: RHOGAM 300MCG (1500IU) INJ IM SCH (08:00)
[2024-05-10] MEDS ORDERED: COLA100C5 PO (08:08)
[2024-05-10] MEDS ORDERED: IBUP80TA PO (08:09)
[2024-05-10] MEDS ORDERED: ACETAMINOPHEN 1000MG/100ML IV BAG As Ordered ONE (08:24)
[2024-05-10] MEDS ORDERED: KETOROLAC 60MG 2ML VIAL As Ordered ONE (08:24)
[2024-05-10] MEDS ORDERED: ePHEDrine SULFATE 25 MG/5 ML(5MG/ML) SYRINGE As Ordered ONE (08:47)
[2024-05-10] MEDS: PRENATAL VITAMINS CHEWABLE TABLET PO SCH (09:00)
[2024-05-10] MEDS ORDERED: METOCLOPRAMIDE INJ 10MG/2ML VIAL IV PRN (09:10)
[2024-05-10] MEDS ORDERED: **NOTE PATIENT COMMENT** MISC XX SCH (09:10)
[2024-05-10] MEDS ORDERED: MEPERIDINE 25 MG/ML 1ML VIAL IV PRN (09:10)
[2024-05-10] MEDS ORDERED: NALOXONE INJ 0.4MG/1ML VIAL IV PRN ×2 (09:10)
[2024-05-10] MEDS ORDERED: oxyCODONE 5MG TAB PO PRN (09:10)
[2024-05-10] MEDS ORDERED: diphenhydrAMINE 50MG/ML VIAL IV PRN (09:10)
[2024-05-10] MEDS: SLF 3 ML SYR IV SCH (09:10)
[2024-05-10] MEDS ORDERED: ONDANSETRON 4MG 2ML VIAL IV PRN (09:10)
[2024-05-10] MEDS: OXYTOCIN DRIP 30 UNITS in IV 1 EA IV SCH (09:18)
[2024-05-10] MEDS ORDERED: fentaNYL 100 MCG/2 ML INJECTION As Ordered ONE (09:31)
[2024-05-10] MEDS: fentaNYL 100 MCG/2 ML INJECTION IV PRN (09:35)
[2024-05-10] MEDS: KETOROLAC 30 MG/ML 1ML VIAL IV SCH (14:33)
[2024-05-10] MEDS: PERCOCET 5MG/325MG TAB PO PRN (14:38)
[2024-05-10] MEDS: SIMETHICONE 80MG CHEW TAB PO PRN (14:38)
[2024-05-10] MEDS: DOCUSATE SODIUM 100MG CAPSULE PO SCH (20:11)
[2024-05-11 02:00] VITALS: BP 115/57; O2SAT 97
[2024-05-11 06:00] VITALS: BP 105/56; O2SAT 98
[2024-05-11 10:00] VITALS: BP 111/65; O2SAT 99
[2024-05-11 10:57] LABS: HEMATOCRIT 33.5 % (36.0-47.0); HEMOGLOBIN 11.1 g/dl (12.0-15.5); MEAN CORPUSCULAR HEMOGLOBIN 30.7 pg (27.0-33.0); MEAN CORPUSCULAR HGB CONC 33.1 g/dl (32.0-36.5); MEAN CORPUSCULAR VOLUME 92.5 fl (80.0-96.0); PLATELET COUNT, AUTOMATED 95 10^3/uL (150-450); RED BLOOD COUNT 3.62 10^6/uL (4.00-5.40); WHITE BLOOD COUNT 14.5 10^3/uL (4.0-10.0)
[2024-05-11 11:54] LABS: HEPATITIS C VIRUS ABY INDEX 0.12 INDEX (<0.8)
[2024-05-11 12:52] LABS: HIV 1&2 SCREEN NEGATIVE (NEGATIVE)
[2024-05-11] MEDS: IBUPROFEN 800 MG TAB PO SCH (12:58)
[2024-05-11 14:00] VITALS: BP 115/56; O2SAT 99
[2024-05-11] MEDS: LR 1,000 ML IV ONE (17:15)
[2024-05-11 17:45] VITALS: BP 108/56; O2SAT 98
[2024-05-11 17:49] LABS: HEMATOCRIT 30.2 % (36.0-47.0); HEMOGLOBIN 10.1 g/dl (12.0-15.5); MEAN CORPUSCULAR HGB CONC 33.4 g/dl (32.0-36.5); MEAN CORPUSCULAR VOLUME 92.6 fl (80.0-96.0); PLATELET COUNT, AUTOMATED 105 10^3/uL (150-450); RED BLOOD COUNT 3.26 10^6/uL (4.00-5.40); WHITE BLOOD COUNT 13.3 10^3/uL (4.0-10.0)
[2024-05-11 22:00] VITALS: BP 118/56; O2SAT 100
[2024-05-12 02:00] VITALS: BP 123/61; O2SAT 98
[2024-05-12 06:00] VITALS: BP 125/69; O2SAT 100
[2024-05-12] MEDS: MEASLES,MUMPS,RUBELLA VACCINE INJ (MMR-II) SC.IMMUN ONE (09:00)
[2024-05-12 10:00] VITALS: BP 118/61; O2SAT 98
[2024-05-12 14:00] VITALS: BP 114/65; O2SAT 100
[2024-05-12 18:00] VITALS: BP 124/59; O2SAT 99
[2024-05-13 06:19] VITALS: BP 135/61; O2SAT 98
[2024-05-13] MEDS: PERCOCET 5MG/325MG TAB PO PRN (08:45)
== END 2024-05-13 15:20 | disposition home or self-care (01) | DRG 540 ==
LOC: M LDI 05-10 05:52 → M OBS 05-10 10:15
PROVIDERS: ADMIT Obstetrics & Gynecology; ATTEND Obstetrics & Gynecology
PROC: 10D00Z1 Extraction of Products of Conception, Low, Open Approach (ICD-10-PCS; principal; 2024-05-10 07:30)
DX: O32.1XX0 Maternal care for breech presentation, not applicable or unspecified (principal); Z37.0 Single live birth; Z3A.39 39 weeks gestation of pregnancy

== ENCOUNTER 2024-05-04 06:58 | Outpatient (CLI) | payer OTHER ==
[~2024-05-04] VITALS: Ht 167.6 cm; Wt 87.8 kg
[2024-05-04 07:10] VITALS: BP 123/60
[2024-05-04] MEDS ORDERED: MUCI1TAB16 PO (07:13)
[2024-05-04] MEDS ORDERED: ACET-907 PO (07:14)
== END 2024-05-04 08:43 | disposition home or self-care (01) ==
LOC: M LDO 06:58
PROVIDERS: ATTEND Obstetrics & Gynecology
DX: O46.93 Antepartum hemorrhage, unspecified, third trimester (principal); O32.1XX0 Maternal care for breech presentation, not applicable or unspecified; Z3A.38 38 weeks gestation of pregnancy; Z88.1 Allergy status to other antibiotic agents
CPT/HCPCS: 59025; G0463

== ENCOUNTER → 2024-09-24 | Outpatient (REF) | payer OTHER, MEDICAID ==
[~2024-09-24] MED LIST changes: +ACET-907 PO; +COLA100C5 PO; +IBUP80TA PO; +MUCI1TAB16 PO
[2024-09-26 12:58] LABS: HPV APTIMA Not Detected (Not Detected)
== END ==
LOC: M PLALAB 08:39
PROVIDERS: ATTEND Obstetrics & Gynecology
DX: Z12.4 Encounter for screening for malignant neoplasm of cervix (principal)

== ENCOUNTER → 2024-10-25 | Outpatient (CLI) | payer OTHER | LOC: M WHC 15:37 | PROVIDERS: ATTEND Nurse Practitioner Family | DX: E05.90 Thyrotoxicosis, unspecified without thyrotoxic crisis or storm (principal) ==

== ENCOUNTER → 2024-10-29 | Outpatient (REF) | payer OTHER ==
[2024-10-29 14:31] LABS: THYROXINE (T4) 4.7 UG/DL (4.5-10.9)
[2024-10-29 14:32] LABS: FREE T4 0.81 NG/DL (0.89-1.76)
[2024-10-30 12:01] LABS: THYROGLOBULIN ANTIBODY 29.0 U/ML (<60.0)
[2024-10-30 12:03] LABS: THYROID PEROXIDASE ANTIBODY > 1300.0 U/ML (<60.0)
[2024-11-01 23:48] LABS: TSH RECEPTOR ASSAY < 1.00 IU/L (<=2.00)
[2024-11-04 18:02] LABS: THYROID STIMULATING IMMUNOGLOB < 89 % baseline (<140)
== END ==
LOC: M LABDRWAD 12:57
PROVIDERS: ATTEND Nurse Practitioner Family
DX: E05.90 Thyrotoxicosis, unspecified without thyrotoxic crisis or storm (principal); R53.83 Other fatigue

== ENCOUNTER 2024-11-15 18:50 | Emergency (ER) | payer OTHER ==
[~2024-11-15] VITALS: Ht 167.6 cm; Wt 87.8 kg
[2024-11-15 19:50] LABS: BASO # 0.0 10^3/uL (0.0-0.2); BASO % 0.3 % (0.0-1.0); EOS # 0.1 10^3/uL (0.0-0.5); EOS % 0.5 % (0.0-3.0); LYMPH # 2.5 10^3/uL (1.5-5.0); LYMPH % 25.4 % (24.0-44.0); MONO # 0.6 10^3/uL (0.0-0.8); MONO % 5.6 % (2.0-8.0); NEUTROPHILS # 6.8 10^3/uL (1.5-8.5); NEUTROPHILS % 68.0 % (36.0-66.0); PLATELET COUNT, AUTOMATED 176 10^3/uL (150-450)
[2024-11-15] MEDS ORDERED: ISOVUE-370 76% 100 ML VIAL As Ordered ONE (20:11)
[2024-11-15 21:15] VITALS: BP 126/59; TEMP 99; O2SAT 98
== END 2024-11-15 21:27 | disposition home or self-care (01) ==
LOC: EDBD 18:50 → M ED 18:50
DX: S30.1XXA Contusion of abdominal wall, initial encounter (principal); V49.49XA Driver injured in collision with other motor vehicles in traffic accident, initial encounter; Y92.410 Unspecified street and highway as the place of occurrence of the external cause; Y93.9 Activity, unspecified; Y99.9 Unspecified external cause status; Z88.1 Allergy status to other antibiotic agents
CPT/HCPCS: 36415; 70450; 72125; 74177; 80047; 85025; 99284; Q9967

== ENCOUNTER → 2025-01-15 | Outpatient (REF) | payer OTHER, MEDICAID ==
[2025-01-15 17:44] LABS: APPEARANCE, URINE HAZY (CLEAR); BACTERIA, URINE AUTO 1+ (NEGATIVE); BILIRUBIN, URINE AUTO NEGATIVE (NEGATIVE); BLOOD, URINE BLOOD 1+ (NEGATIVE); GLUCOSE, URINE (UA) AUTO NEGATIVE (NEGATIVE); KETONE, URINE AUTO NEGATIVE (NEGATIVE); LEUKOCYTE ESTERASE, URINE AUTO 2+ (NEGATIVE); MUCUS, URINE SMALL (NEGATIVE); NITRITE, URINE AUTO POSITIVE (NEGATIVE); PROTEIN, URINE AUTO 1+ mg/dL (NEGATIVE); RBC, URINE AUTO 11 /HPF (0-3); SPECIFIC GRAVITY URINE AUTO 1.015 (1.002-1.035); SQUAMOUS EPITHELIAL CELL UR AU 14 /HPF (0-6); UROBILINOGEN, URINE AUTO 4.0 mg/dL (0.0-2.0); WBC, URINE AUTO 151 /HPF (0-3)
== END ==
LOC: M LAB REF 17:07
PROVIDERS: ATTEND Physician Assistant
DX: N39.0 Urinary tract infection, site not specified (principal)